=== PATIENT | male | born 1975 | race Caucasian/White ===

== ENCOUNTER → 2017-11-10 11:47 | Outpatient (CLI) | payer OTHER, SELFPAY ==
[2017-11-10 14:15] LABS: ALB/GLOB Ratio 1.2 RATIO (0.9-2.4); AST(SGOT) 32 U/L (15-37); Alanine Aminotransfer ALT/SGPT 56 U/L (16-61); Albumin, Serum 4.6 g/dL (3.2-5.0); Alkaline Phosphatase 33 U/L (45-117); Anion Gap 12 (5-15); BUN 8 mg/dL (7-18); Calcium,Total 9.3 mg/dL (8.5-10.1); Chloride 101 mmol/L (98-107); Cholesterol 261 mg/dL (200); Creatinine, Serum 0.73 mg/dL (0.70-1.30); EST Glomerular Filtration Rate 126 mL/min (>60); Est Glom Filt Rate - Afr Amer 153 mL/min (>60); Globulin 3.7 g/dL (2.2-4.2); Glucose 103 mg/dL (74-106); High Density Lipoprotein 52 mg/dL; Magnesium 1.8 mg/dL (1.6-2.6); Potassium 3.8 mmol/L (3.5-5.1); Protein, Total 8.3 g/dL (6.4-8.2); Sodium Level 140 mmol/L (136-145); Thyroid Stim Hormone (TSH) 2.14 uIU/mL (0.358-3.74); Triglycerides 130 mg/dL; Very Low Density Lipoprotein 26 mg/dL (5-40)
[2017-11-11 08:36] LABS: Vitamin D,25 Hydroxy 47.4 ng/mL (29.95-100.01)
== END ==
LOC: MFPLAB 11:50
PROVIDERS: Family Provider Family Medicine; PCP Family Medicine; Visit Provider Family Medicine
DX: I10 Essential (primary) hypertension (principal); R00.2 Palpitations
CPT/HCPCS: 36415; 80053; 80061; 82306; 83735; 84443

== ENCOUNTER 2021-02-18 02:17 | Observation (INO) | payer OTHER, SELFPAY ==
[2021-02-18] VITALS (14 sets, daily range): BP systolic 129–159; BP diastolic 67–104; PULSE 90–108; RESP 16–18; TEMP 36.6–37.1; O2SAT 93–99; BMI 31.5; BMI 30.6; BMI 30.7
--- NOTE | 2021-02-18 02:46 | CT_ITS ---
We are attempting to reach an attending provider to discuss findings. An addendum with communication details will be sent when the communication is complete. STUDY: CT ABDOMEN AND PELVIS WITH CONTRAST REASON FOR EXAM: Male, 45 years old. RLQ pain RADIATION DOSAGE (If Supplied By Facility): CTDIvol = ( 18.03 ) mGy, DLP = ( 1266.40 ) mGycm TECHNIQUE: Transaxial images were obtained from the dome of the diaphragm to the symphysis pubis without oral contrast. IV 100mL Isovue-300 was administered. Sagittal and coronal images were reconstructed. Individualized dose optimization techniques were used for this CT. COMPARISON: None. FINDINGS: The visualized lung bases are unremarkable. The visualized portions of the heart are within normal limits. There is fenestration of the liver. Several cysts are seen in the very largest measures 2 cm. Normal gallbladder and extrahepatic biliary system. Normal spleen. Normal pancreas. Normal bilateral adrenal glands. Normal right kidney. Normal left kidney. Normal visualized stomach. Normal small intestine. There are multiple colonic diverticula consistent with diverticulosis. There is a tubular, thick-walled appendix (>7mm), consistent with acute appendicitis. Normal abdominal aorta. Normal inferior vena cava. Normal retroperitoneum. Normal urinary bladder. Normal abdominal wall. Normal osseous structures. CT/Abdomen/Pelvis W IV Cont ONLY IMPRESSION: Acute appendicitis. Electronically Signed: Jose L Baires MD at 4:11 EST Tel , Service support ,
[2021-02-18] MEDS: 0.9% Normal Saline 1,000 ML 1000 ML IV (02:52)
[2021-02-18] MEDS: Ondansetron 4 MG/2 ML Vial IV (02:53)
[2021-02-18] MEDS: Morphine 4 MG/ML Syringe IV ×4 (02:53→11:03)
[2021-02-18 02:55] LABS: Bacteria 0 SEEN /hpf (None Seen); Mucous, Urine 0 SEEN /hpf (<or=2+); Red Blood Cells-Urine 0 SEEN /hpf (0-5); Squamous Epithelial Cells - UA 0 SEEN /hpf (0-5); White Blood Cells 0 SEEN /hpf (0-5)
[2021-02-18 02:56] LABS: Color, Urine Yellow (Yellow); Glucose, Dipstick Normal (Normal); Ketone-Dipstick 5 mg/dl (Negative); Leukocyte Esterase-Dipstick Negative /ul (Negative); Nitrite-Dipstick Negative (Negative); Occult Blood-Urine Negative /ul (Negative); Protein-Dipstick Negative (Negative); Urine Bilirubin Dipstick Negative (Negative); Urine Clarity Clear (Clear); Urine Urobilinogen Normal (Normal); Urine pH 6.5 (5.0 - 8.0)
[2021-02-18 02:58] LABS: Absolute Lymphocyte Count 1.89 X10^3/uL (0.83-4.51); Basophil# 0.05 X10^3/uL; Basophil% 0.4 % (0-1); Eosinophil# 0.04 X10^3/uL; Eosinophils% 0.3 % (0-5); Hematocrit 41.7 % (40-54); Hemoglobin 14.4 g/dL (13.0-16.5); Lymphocyte # 1.89 X10^3/ul (0.83-4.51); Lymphocyte % 14.4 % (19-41); Mean Corp Hgb Conc 34.5 g/dL (32-36); Mean Corpuscular Hgb 30.5 pg (27.0-32.0); Mean Corpuscular Volume 88.3 fL (80-94); Monocyte# 1.13 X10^3/uL; Monocyte% 8.6 % (0-10); NRBC Flagged by Analyzer 0 % (0-5); Neutrophil # 9.99 X10^3/uL (2.7-7.7); Neutrophil % 75.9 % (47-70); Platelet Count 170 K/mm3 (150-450); RBC Distribution Width CV 12.9 % (11.6-14.6); RBC Distribution Width SD 42.1 fl (35.1-43.9); Red Blood Count 4.72 M/mm3 (4.6-6.2); White Blood Count 13.2 K/mm3 (4.4-11.0)
[2021-02-18 03:12] LABS: ALB/GLOB Ratio 1.1 RATIO (0.9-2.4); AST(SGOT) 31 U/L (15-37); Alanine Aminotransfer ALT/SGPT 60 U/L (16-61); Albumin, Serum 4.1 g/dL (3.2-5.0); Alkaline Phosphatase 34 U/L (45-117); Anion Gap 9 (5-15); BUN 8 mg/dL (7-18); BUN/Creat Ratio 11.6 RATIO (10-20); Calcium,Total 8.9 mg/dL (8.5-10.1); Chloride 102 mmol/L (98-107); Creatinine, Serum 0.69 mg/dL (0.70-1.30); EST Glomerular Filtration Rate 133 mL/min (>60); Est Glom Filt Rate - Afr Amer 161 mL/min (>60); Estimated Creatinine Clearance 147.02 ml/min; Globulin 3.7 g/dL (2.2-4.2); Glucose 116 mg/dL (74-106); Lipase 78 U/L (73-393); Potassium 3.5 mmol/L (3.5-5.1); Protein, Total 7.8 g/dL (6.4-8.2); Sodium Level 135 mmol/L (136-145)
--- NOTE | 2021-02-18 03:26 | EDS_ITS ---
HPI History of Present Illness Chief Complaint: Abd Pain Informant: patient Narrative Narrative: Patient is a 45-year-old male that denies any significant past medical history presenting with right flank pain. Patient states it started suddenly around 9:30 PM. He notes today he just has not been feeling well and had decreased appetite. He did not eat dinner which is unusual for him. He had some mild associated nausea. He tried taking Pepto-Bismol with no relief of his symptoms. He denies any associated urinary symptoms, fever or chills. Denies any associated chest pain or difficulty breathing. Denies any history of kidney stones. He does note he was doing yard work for about 5 hours a day so is not sure if that is causing his pain. No other complaints or concerns at this time. No prior abdominal surgeries. Prior similar symptoms: No PFSH PFSH Medical History ADHD HTN (hypertension) Home Medications dextroamphetamine-amphetamine 10 mg PO BID 02/18/21 [History Last Taken Unknown] quinapril 20 mg PO DAILY 02/18/21 [History Last Taken Unknown] Allergy/AdvReac Type Severity Reaction Status Date / Time azithromycin Allergy NEEDS Verified 02/18/21 02:23 [From Zithromax Z-Eben] FOLLOW-UP erythromycin base Allergy NEEDS Verified 02/18/21 02:23 FOLLOW-UP Social History Smoking Status: Never smoker ROS ROS ED Constitutional Constitutional ED: Denies chills or fever(s) Eyes Eyes: Denies change in vision ENT ENT ED: Denies rhinorrhea or sore throat Cardiovascular Cardiovascular: Denies chest pain Respiratory/Chest Respiratory/Chest: Denies dyspnea Gastrointestinal Gastrointestinal: Reports abdominal pain and nausea; Denies constipation, diarrhea or vomiting Genitourinary Genitourinary ED: Denies dysuria or hematuria Musculoskeletal Musculoskeletal: Denies arthralgias or myalgias Integumentary Denies rash Neurologic Neurologic: Denies headache(s) or weakness EXAM Physical Exam Const Vital Signs: 02/18/21 02:18 Temperature 98.6 F Temperature Source Temporal Pulse Rate 108 H Respiratory Rate 18 Blood Pressure 159/104 H Blood Pressure Mean 122 Pulse Ox 99 Positive well nourished and well developed General Appearance ED: well developed HEENT Reports moist mucous membranes Eyes PERRL and EOMs intact bilaterally Neck supple Chest Wall inspection of chest normal Resp normal respiratory effort and clear to auscultation bilaterally Cardio regular rate, regular rhythm and no murmurs GI non-distended Palpation: soft and tender RLQ and McBurney's point; Negative for rebound tenderness present Back/Spine no CVA tenderness Extremity normal to inspection General Extremety ED: Negative for edema or tenderness General Extremity: Negative for edema Neuro oriented x3 Sensorium / Orientation: alert Motor Exam: Negative for general weakness Psych mental status grossly normal Skin no rashes or lesions noted MDM MDM MDM Narrative Medical decision making narrative: Patient evaluated for sudden onset of right- sided abdominal pain. Patient appears nontoxic but uncomfortable on exam. He is mildly hypertensive and tachycardic. He is given Zofran and morphine as well as IV fluids in the ER. He does have some improvement of his symptoms. Patient has a leukocytosis of 13.2. He does have significant tenderness palpation of the right lower quadrant concerning for acute appendicitis. CT of the abdomen and pelvis confirms acute appendicitis no signs of abscess or perforation. He started IV Zosyn. He is redosed with morphine for pain control. He is admitted to surgical service for definitive management. Lab Data Attestation: I reviewed the patient's lab results. Labs: Laboratory Results - last 24 hr 02/18/21 02/18/21 02/18/21 02:30 02:30 02:30 WBC 13.2 H RBC 4.72 Hgb 14.4 Hct 41.7 MCV 88.3 MCH 30.5 MCHC 34.5 RDW Std Deviation 42.1 RDW Coeff of Herlinda 12.9 Plt Count 170 MPV 10.0 Immature Gran % (Auto) 0.400 Neut % (Auto) 75.9 H Lymph % (Auto) 14.4 L [place] % (Auto) 8.6 Eos % (Auto) 0.3 Baso % (Auto) 0.4 Absolute Neuts (auto) 10.0 H Absolute Lymphs (auto) 1.89 Nucleated RBC % 0 Sodium 135 L Potassium 3.5 Chloride 102 Carbon Dioxide 24.0 Anion Gap 9 BUN 8 Creatinine 0.69 L Estim Creat Clear Calc 147.02 Est GFR (MDRD) Af Amer 161 Est GFR (MDRD) Non-Af 133 BUN/Creatinine Ratio 11.6 Glucose 116 H Calcium 8.9 Total Bilirubin 0.50 AST 31 ALT 60 Alkaline Phosphatase 34 L Total Protein 7.8 Albumin 4.1 Globulin 3.7 Albumin/Globulin Ratio 1.1 Lipase 78 Urine Color Yellow Urine Clarity Clear Urine pH 6.5 Ur Specific [place] 1.010 Urine Protein Negative Urine Glucose (UA) Normal Urine Ketones 5 H Urine Occult Blood Negative Urine Nitrite Negative Urine Bilirubin Negative Urine Urobilinogen Normal Ur Leukocyte Esterase Negative Urine RBC 0 SEEN Urine WBC 0 SEEN Ur Squamous Epith Cells 0 SEEN Urine Bacteria 0 SEEN Urine Mucus 0 SEEN Radiography Diagnostic Testing: Clinical Impression(s) from Imaging Studies Abdomen/Pelvis CT 02/18/21 02:46 IMPRESSION: Acute appendicitis. Electronically Signed: Jose L Baires MD at 4:11 EST Tel , Service support , Discharge Plan Triage Chief Complaint: Abd Pain ED Provider: Destiny Hu Dx/Rx/DC Orders Clinical Impression: Acute appendicitis, Leukocytosis Prescriptions: No Action dextroamphetamine-amphetamine 10 mg tablet 10 mg PO BID RF: 0 quinapril 20 mg tablet 20 mg PO DAILY RF: 0 Primary Care Provider: Greg Cleaning Referrals: Greg Cleaning MD [Primary Care Provider] - Disposition Disposition: [facility]
[2021-02-18] MEDS: Ketorolac 15 MG/ML Vial IV (04:37)
--- NOTE | 2021-02-18 05:14 | NURSING ---
PANDEMIC DOCUMENTATION DATE:02/18/21 TIME: 2750
[2021-02-18] MEDS: 0.9% Normal Saline 1,000 ML 120 ML IV (05:32)
--- NOTE | 2021-02-18 07:35 | HP.PCM.SX_ITS ---
HPI - General General Date of Admission: 02/18/21 HPI Narrative BREANN NICKERSON, is a 45 M who presents with sudden onset of right lower quadrant abdominal pain at 9:30 last night. Had been feeling unwell through the day, also with anorexia which is unusual for him. Presented to [facility] ED. Was afebrile, found to have elevated WBC of 13.2K with left shift of differential CT scan findings of acute appendicitis without perforation without abscess. patient admitted to hospital early this morning awaiting surgery in OR. [facility] Medical History ADHD Alcohol consumption of one to four drinks per day HTN (hypertension) Migraines Home Medications dextroamphetamine-amphetamine 10 mg PO BID 02/18/21 [History Last Taken 02/17/21] hydrocodone-acetaminophen 1 tab PO Q8H 5 Days #15 tab 02/18/21 [Rx Last Taken Unknown] quinapril 20 mg PO DAILY 02/18/21 [History Last Taken 02/17/21] Allergy/AdvReac Type Severity Reaction Status Date / Time azithromycin Allergy Vomiting Verified 02/18/21 05:28 [From Zithromax Z-Eben] erythromycin base Allergy Upset Verified 02/18/21 05:28 Stomach Social History Smoking Status: Never smoker ROS Constitutional Constitutional: Reports anorexia; Denies fever(s) Cardiovascular Cardiovascular: Denies chest pain Respiratory/Chest Respiratory/Chest: Denies dyspnea or productive cough Genitourinary Genitourinary: Reports systems reviewed and no addt'l complaints, except as documented Musculoskeletal Musculoskeletal: Denies joint swelling Integumentary Integumentary: Denies jaundice Neurologic Neurologic: Denies loss of vision Hematologic/Lymphatic Hematologic/Lymphatic: Denies easy bleeding Vital Signs Vital Signs Vital Signs: 02/18/21 02:18 02/18/21 04:19 02/18/21 04:35 Temperature 98.6 F 98.7 F Temperature Source Temporal Temporal Pulse Rate 108 H 96 Respiratory Rate 18 16 16 Respiratory Effort Respiratory Depth Respiratory Pattern Blood Pressure 159/104 H 146/87 H Blood Pressure Mean 122 106 Blood Pressure Source Monitor Pulse Ox 99 96 Oxygen Delivery Method Room Air 02/18/21 04:39 02/18/21 05:09 02/18/21 05:43 Temperature 98.7 F 98.3 F Temperature Source Temporal Temporal Pulse Rate 96 94 Respiratory Rate 16 16 Respiratory Effort Normal Respiratory Depth Normal Respiratory Pattern Normal Blood Pressure 146/87 H 156/84 H Blood Pressure Mean 106 108 Blood Pressure Source Pulse Ox 96 98 Oxygen Delivery Method Room Air Room Air Room Air Weight Weight: 99.5 kg Body Mass Index (BMI) 30.6 Physical Exam Const no apparent distress General Appearance: Negative for ill appearing Resp normal respiratory effort Cardio regular rate GI GI Narrative: abdomen is soft with RLQ abdominal tenderness, no peritoneal signs Extremity Negative for no clubbing, cyanosis or edema Results Lab / Micro Data Result Diagrams: 02/18/21 02:30 02/18/21 02:30 Labs: Laboratory Results - last 24 hr 02/18/21 02:30: WBC 13.2 H, RBC 4.72, Hgb 14.4, Hct 41.7, MCV 88.3, MCH 30.5, MCHC 34.5, RDW Std Deviation 42.1, RDW Coeff of Herlinda 12.9, Plt Count 170, MPV 10.0, Immature Gran % (Auto) 0.400, Neut % (Auto) 75.9 H, Lymph % (Auto) 14.4 L, [place] % (Auto) 8.6, Eos % (Auto) 0.3, Baso % (Auto) 0.4, Absolute Neuts (auto) 10.0 H, Absolute Lymphs (auto) 1.89, Nucleated RBC % 0 02/18/21 02:30: Sodium 135 L, Potassium 3.5, Chloride 102, Carbon Dioxide 24.0, Anion Gap 9, BUN 8, Creatinine 0.69 L, Estim Creat Clear Calc 147.02, Est GFR (MDRD) Af Amer 161, Est GFR (MDRD) Non-Af 133, BUN/Creatinine Ratio 11.6, Glucose 116 H, Calcium 8.9, Total Bilirubin 0.50, AST 31, ALT 60, Alkaline Phosphatase 34 L, Total Protein 7.8, Albumin 4.1, Globulin 3.7, Albumin/Globulin Ratio 1.1, Lipase 78 02/18/21 02:30: Urine Color Yellow, Urine Clarity Clear, Urine pH 6.5, Ur Specific [place] 1.010, Urine Protein Negative, Urine Glucose (UA) Normal, Urine Ketones 5 H, Urine Occult Blood Negative, Urine Nitrite Negative, Urine Bilirubin Negative, Urine Urobilinogen Normal, Ur Leukocyte Esterase Negative, Urine RBC 0 SEEN, Urine WBC 0 SEEN, Ur Squamous Epith Cells 0 SEEN, Urine Bacteria 0 SEEN, Urine Mucus 0 SEEN Micro: Microbiology 02/18/21 04:30 Nasal Secretion SARS-CoV-2 Antigen (Rapid) - Final Radiology Impression Abdomen/Pelvis CT 02/18/21 02:46 IMPRESSION: Acute appendicitis. Electronically Signed: Jose L Baires MD at 4:11 EST Tel , Service support , ADDENDUM: 02/18/21 0421 IMPRESSION: Acute appendicitis. N.B. : The above Results were Read Back by Jose L Baires MD to Destiny Hu DO, and understanding confirmed on 02/18/2021 04:14:13 (ET). Electronically Signed: Jose L Baires MD at 4:11 EST Tel , Service support , Assessment & Plan Assessment/Plan (1) Acute appendicitis: QUALIFIERS: Acute appendicitis type: unspecified acute appendicitis type Qualified Code(s): K35.80 - Unspecified acute appendicitis PLAN: I have discussed with patient and his who is present with him. Will plan on laparoscopic appendectomy. I have described the surgery to them. I have counseled the patient as to the risks of the procedure, including but not limited to: infection, bleeding, injury to any blood vessels/nerves, scar tissue, injury to any intrabdominal organs, injury to kidney/ureters, injury to bowel/bladder, intraabdominal abscess/bleeding, hernias at incisional sites, wound infections, possible open procedure, complications of anesthesia, postoperative pneumonia/cardiac problems/blood clots etc. the patient understands. He wishes to proceed I have answered all questions to the patient?s satisfaction and the patient has no further questions. Awaiting OR time - around 3:00 this afternoon, patient and his informed.
--- NOTE | 2021-02-18 13:52 | NURSING ---
patient off floor to surgery.
--- NOTE | 2021-02-18 14:25 | EKG12_ITS ---
Test Reason : PRE OP Blood Pressure : / mmHG Vent. Rate : 090 BPM Atrial Rate : 090 BPM P-R Int : 182 ms QRS Dur : 096 ms QT Int : 346 ms P-R-T Axes : 053 028 016 degrees QTc Int : 423 ms Normal sinus rhythm Normal ECG Confirmed by ERROL KHAN, JOSUÉ ([id number]), editor newspaper IVAN GARDNER ([id number]) on 02/21/2021 9:09:36 AM Referred By: DENNIS Confirmed By:JOSUÉ NORTON MD
--- NOTE | 2021-02-18 15:00 | APP_PTH ---
PATIENT: BREANN NICKERSON LOC: MS2 U#:[id number] AGE/SX: 45/M ROOM: [facility] RE02/18/[address]: Dr. Amparo Delatorre MD : 1975 BED: 1 DIS: 02/18/2021 SPEC #: [id number] RECD: 02/19/21 12:10 STATUS: MAURICE REQ #: [id number] DEMETRICE: 02/18/21 15:[address]: Amparo Delatorre DEPT: SURGICAL PATHOLOGY RECD BY: Justina Jeter ENTERED: 02/19/21 13:29 SP TYPE: APPENDIX OTHR DR: Dr. Greg Cleaning MD Tissues: Appendix, NOS Procedures: Surgery Specimen Level III HEADER OPERATION: Laparoscopic appendectomy PRE-OP DIAGNOSIS: Acute appendicitis TISSUE SUBMITTED: Appendix MICROSCOPIC DIAGNOSIS Appendix, appendectomy: Acute appendicitis and periappendicitis. SJ:julissa 02/20/2021 MICROSCOPIC DESCRIPTION Slides are reviewed. GROSS DESCRIPTION Received in fixative is one container labeled with the patient's name and designated appendix. The specimen consists of a C-shaped appendix measuring 8 cm in length and 1 cm in diameter. The serosa is covered with mandel, purulent exudate. No obvious perforation is identified. The lumen shows a small amount of hemorrhagic material. No fecalith is identified. Pipe Coverer sections are submitted in one cassette. / SJ:rg 02/19/21 TC:2 CPT: 94912
[2021-02-18] MEDS: Lidocaine 1% /Epi 1:100 (20ml) 20 ML Vial (15:34)
--- NOTE | 2021-02-18 16:58 | PCM.OPRPT ---
Report of Operation Date of Procedure: 02/18/21 Pre-Operative Diagnosis: acute appendicitis Post-Operative Diagnosis: same as above, not perforated Surgery/Procedure Performed:: laparoscopic appendectomy Surgeon: Amparo Delatorre Type of Anesthesia: General Anesthesiologist: Reese Cormier Specimen's removed: appendix Estimated Blood Loss (mL): < 20 ml Fluids Replaced: 1000 ml RL Description of Procedure: After informed consent was obtained, the patient was brought into the Operating Room. Appropriate time out protocol was followed. The patient was placed in the supine position on the operating table. The patient was then placed under general anesthesia by the anesthesia provider. The patient?s abdomen was then prepped with a sterile surgical skin preparation and sterile surgical drapes were placed. The infraumbilical skin fold was grasped with penetrating towel clamps and the skin and subcutaneous tissues were infiltrated with local anesthetic with epinephrine. A incision was then made with a 15 blade scalpel. A Veress needle was then inserted into the intraabdominal cavity and checked to be in the proper position with a normal saline drop test. A CO2 pneumoperitoneum was then created. Once this was achieved, the Veress needle was removed and a 5 mm trocar was placed in its stead. A 5 mm laparoscope was then inserted into the trocar. Careful examination of the intraabdominal contents was then done. There was no evidence of injury to any internal organs from placement of the Veress needle or the trocar. Under direct visualization, a 12mm suprapubic trocar and a 5mm left lower quadrant trocar was then placed into the intraabdominal cavity. The skin and subcutaneous tissues at these sites were first infiltrated with local anesthetic with epinephrine. Attention was then directed to the right lower quadrant. The appendix was visualized. The appendix appeared enlarged/edematous/injected with surrounding inflammation. The mesentery of the appendix was taken down by cauterizing the tissue from the free edge to the base of the appendix using the Harmonic scalpel. Once the base of the appendix was freed of surrounding tissues, then the linear gastrointestinal stapling device was brought into the abdominal cavity via the 12mm port and placed across the base of the appendix. The stapling device was fired, thus stapling across the base of the appendix and transecting it simultaneously. There was no evidence of perforation of the appendix. The pelvic cavity was vigorously irrigated with normal saline and all irrigant was aspirated out. The appendix was placed in an Endobag and this was brought out through the suprapubic trocar. The appendix was forwarded to Pathology for analysis. The appendiceal stump was carefully examined. There was no evidence of any active bleeding or fecal leakage. The surrounding tissues were also examined and there was no evidence of any active bleeding or fecal/bile leakage. The intraabdominal cavity was examined and there was no evidence of any further inflammation or tissue abnormality. The CO2 pneumoperitoneum was released and all trocars were removed intact. The suprapubic fascia was reapproximated with a figure-of-8 vicryl suture. All skin incisions were reapproximated with monocryl suture. Cavilon and steristrips were applied to reinforce skin closure and proper sterile dressings were placed. Sponge, needle, and instrument count were verified and correct at the time of skin closure. The patient was then extubated and brought to the Recovery Room in stable condition. Complications none noted Admit VTE Documentation VTE Present on Admission: Yes VTE Mechan Device Prophylaxis: SCD's
--- NOTE | 2021-02-18 17:08 | PCM.DC ---
Discharge Instructions Follow Up Care Test Results: Test results from this visit will be discussed in further detail at your follow-up appointment, if applicable. Discharge Plan Admission Admit Date/Time: 02/18/21 04:55 Attending Provider: Amparo Delatorre Primary Care Provider: Greg Cleaning Instructions Additional Instructions / Restrictions: Recommended pain control regimen - May take 600 mg ibuprofen (Motrin) and then in 3-4 hours, may take 650 mg acetaminophen (Tylenol), then in 3-4 hours may take 600 mg ibuprofen, then in 3-4 hours may take 650 mg acetaminophen and so on for 2-3 days May take narcotic pain medication for pain that is not controlled by above and at night for comfort through the night Leave dressings in place May shower, do not scrub in the areas of the dressings as they may unravel. If they become overly soiled you may remove them but leave incision site open to air. Leave the steristrips intact - they take the place of sutures/jose and they should be left alone to fall off on their own. Do not soak - no tub baths/swimming No lifting/pushing/pulling greater than 20 pounds for two weeks. Ambulation is encouraged, may climb stairs. Regular diet as tolerated, drink plenty of fluids. Avoid carbonated beverages for a few days as this will cause abdominal bloating and thus discomfort after our surgery. Please call my office for an appointment to see me in 1-2 weeks. Office number is If any questions, please call my office at and ask the drivematic machine operator for the general surgery nurses desk Discharge Orders/Prescriptions Prescriptions: New hydrocodone-acetaminophen 5-325 mg tablet 1 tab PO Q8H 5 Days Qty: 15 RF: 0 hydrocodone-acetaminophen 5-325 mg tablet 1 tab PO Q8H 5 Days Qty: 15 RF: 0 hydrocodone-acetaminophen 5-325 mg tablet 1 tab PO Q8H 5 Days Qty: 15 RF: 0 No Action dextroamphetamine-amphetamine 10 mg tablet 10 mg PO BID RF: 0 quinapril 20 mg tablet 20 mg PO DAILY RF: 0 Referrals / Follow Up: Greg Cleaning MD [Primary Care Provider] - Disposition Discharge Orders: Discharge Patient (Routine); Ordered 02/18/21 Ordered By: Dr. Amparo Delatorre
== END 2021-02-18 20:30 | disposition home or self-care (01) ==
LOC: ED 04:20 → MS2 07:22
PROVIDERS: Admitting Provider Surgery; Emergency Provider Emergency Medicine; PCP Family Medicine; Visit Provider Surgery
PROC: 0DTJ4ZZ Resection of Appendix, Percutaneous Endoscopic Approach (ICD-10-PCS; CPT 44970; principal; 2021-02-18 14:40)
DX: K35.80 Unspecified acute appendicitis (principal); I10 Essential (primary) hypertension; Z79.899 Other long term (current) drug therapy
CPT/HCPCS: 00840; 44970; 74177; 80053; 81001; 83690; 85025; 87426; 88304; 93005; 96361; 96365; 96366; 96375; 96376; 99218; 99284; J7030; Q9967; A4216; G0378; J2405

== ENCOUNTER 2021-03-22 14:23 | Emergency (ER) | payer OTHER, SELFPAY ==
[2021-03-22 14:23] VITALS: BP 159/98; PULSE 109; RESP 18; TEMP 36.5; O2SAT 99; BMI 31.1
--- NOTE | 2021-03-22 14:26 | EKG12_ITS ---
Test Reason : PALPS Blood Pressure : / mmHG Vent. Rate : 111 BPM Atrial Rate : 111 BPM P-R Int : 164 ms QRS Dur : 090 ms QT Int : 322 ms P-R-T Axes : 047 039 021 degrees QTc Int : 437 ms Sinus tachycardia Nonspecific T wave abnormality Abnormal ECG Confirmed by CECI KHAN, JESUS ([id number]), make up editor IVAN GARDNER ([id number]) on 03/25/2021 10:15:45 AM Referred By: FRANKY/SHON Confirmed By:JESUS ORNELAS MD
--- NOTE | 2021-03-22 14:27 | ED.RN ---
called for ekg at 1425.
--- NOTE | 2021-03-22 14:30 | RAD_ITS ---
STUDY: X-RAY CHEST REASON FOR EXAM: Male, 45 years old. Chest pain TECHNIQUE: Single AP portable view of the chest. COMPARISON: None. FINDINGS: The lungs are clear and expanded. There is no demonstrated pleural abnormality. Normal size heart. Calcified bilateral hilar lymph nodes. Normal visualized pulmonary arteries. Normal visualized aortic arch and descending thoracic aorta. There are degenerative changes of the visualized thoracic spine. Normal visualized ribs, clavicles, and shoulders. There is no demonstrated abnormality of the visualized soft tissue structures of the upper abdomen. RAD/Chest 1 View (Portable) IMPRESSION: Normal x-ray examination of the chest. Electronically Signed: Dillan Schmid MD at 14:54 EST , Service support ,
[2021-03-22 14:41] VITALS: BP 150/92; PULSE 106
[2021-03-22 14:46] LABS: Absolute Lymphocyte Count 1.04 X10^3/uL (0.83-4.51); Absolute Neutrophil Count 3.5 X10^3/uL (2.0-7.7); Basophil# 0.05 X10^3/uL; Basophil% 0.7 % (0-1); Eosinophil# 1.61 X10^3/uL; Eosinophils% 23.1 % (0-5); Hematocrit 43.4 % (40-54); Hemoglobin 14.6 g/dL (13.0-16.5); Lymphocyte # 1.04 X10^3/ul (0.83-4.51); Lymphocyte % 14.9 % (19-41); Mean Corp Hgb Conc 33.6 g/dL (32-36); Mean Corpuscular Volume 89.3 fL (80-94); Mean Platelet Vol. 9.6 fl (6.2-12.0); Monocyte# 0.72 X10^3/uL; Monocyte% 10.3 % (0-10); NRBC Flagged by Analyzer 0 % (0-5); Neutrophil # 3.52 X10^3/uL (2.7-7.7); Neutrophil % 50.7 % (47-70); POSITIVE MORPHOLOGY YES; Platelet Count 172 K/mm3 (150-450); RBC Distribution Width CV 13.2 % (11.6-14.6); RBC Distribution Width SD 43.3 fl (35.1-43.9); Red Blood Count 4.86 M/mm3 (4.6-6.2)
[2021-03-22 14:55] LABS: Differential Indicated SCAN CRITERIA MET
[2021-03-22 15:03] LABS: Anion Gap 7 (5-15); BUN 8 mg/dL (7-18); Calcium,Total 9.2 mg/dL (8.5-10.1); Chloride 101 mmol/L (98-107); Creatinine, Serum 0.89 mg/dL (0.70-1.30); EST Glomerular Filtration Rate 99 mL/min (>60); Est Glom Filt Rate - Afr Amer 120 mL/min (>60); Estimated Creatinine Clearance 113.98 ml/min; Glucose 132 mg/dL (74-106); Potassium 3.8 mmol/L (3.5-5.1); Sodium Level 136 mmol/L (136-145); Troponin-I HS 34 pg/mL (3.0-78.0)
--- NOTE | 2021-03-22 15:32 | CT_ITS ---
STUDY: CTA CHEST REASON FOR EXAM: Male, 45 years old. Palpitations RADIATION DOSAGE (If Supplied By Facility): CTDIvol = ( 8.86 ) mGy, DLP = ( 528.87 ) mGycm TECHNIQUE: The examination was performed with the intravenous administration of IV 100mL Isovue-370. Post-processing of the angiographic images was performed, with multiplanar reformation and 3D reconstruction. Individualized dose optimization techniques were used for this CT. COMPARISON: Chest x-ray earlier today FINDINGS: Normal enhancement of the main pulmonary artery and right and left pulmonary arteries. Normal enhancement of the bilateral peripheral pulmonary arteries. There is no demonstrated pulmonary embolism. Normal thoracic aorta and visualized great vessels. There is no demonstrated aortic dissection. Normal heart and pericardium. Normal mediastinum. Normal hilar regions. Normal visualized trachea and bronchi. The lungs are well expanded. Normal pulmonary parenchyma. Normal pleura. Normal chest wall structures. Normal osseous structures. Normal visualized upper abdomen. CT/CTA Chest W/WO Contrast IMPRESSION: Normal CTA chest examination, without a demonstrated pulmonary embolism or arterial dissection. Electronically Signed: Kodi Carney MD at 16:58 EST Tel , Service support ,
[2021-03-22 15:35] VITALS: BP 154/90; PULSE 117; RESP 18; O2SAT 97
[2021-03-22 15:53] LABS: Differential Comment SCANNED
[2021-03-22 16:19] VITALS: BP 160/93; PULSE 108; RESP 18; O2SAT 100
--- NOTE | 2021-03-22 16:50 | EDS_ITS ---
HPI History of Present Illness Chief Complaint: Palpitations Informant: patient Onset/Context/Timing Onset: Yesterday Activity at onset: sudden Timing: Intermittent Quality: Positive for Tightness Location: Left Chest Worsened By: Nothing Relieved By: Nothing Associated Symptoms: Positive for Diaphoresis, Cough, Lightheadedness, Acid Reflux and Palpitations; Negative for Nausea, Vomiting, Dyspnea and Fever Narrative Narrative: Patient presents with palpitations and tachycardia that began yesterday. Patient states he had an episode where he felt like his heart was racing yesterday. Patient states it lasted approximately 1 hour. Patient states that today he feels like his heart is beating fast. Patient states he is having some tightness in his chest. Patient states it is over the left mid chest. Patient states nothing makes it better nothing makes it worse. Patient states he feels lightheaded with this. Patient denies any nausea or vomiting. Patient does admit to some slight diaphoresis. Patient also admits to mild cough. Patient denies any fevers or shortness of breath. PFSH PFSH Medical History (Updated 03/22/21 @ 18:[address] Greg Hart DO) ADHD Alcohol consumption of one to four drinks per day HTN (hypertension) Migraines Home Medications dextroamphetamine-amphetamine 10 mg PO BID 02/18/21 [History Last Taken 02/17/21] hydrocodone-acetaminophen 1 tab PO Q8H 5 Days #15 tab 02/18/21 [Rx Last Taken Unknown] hydrocodone-acetaminophen 1 tab PO Q8H 5 Days #15 tab 02/18/21 [Rx Last Taken Unknown] hydrocodone-acetaminophen 1 tab PO Q8H 5 Days #15 tab 02/18/21 [Rx Last Taken Unknown] quinapril 20 mg PO DAILY 02/18/21 [History Last Taken 02/17/21] Allergy/AdvReac Type Severity Reaction Status Date / Time azithromycin Allergy Vomiting Verified 03/22/21 14:23 [From Zithromax Z-Eben] erythromycin base Allergy Upset Verified 03/22/21 14:23 Stomach Surgical History (Updated 03/22/21 @ 16:[address] Greg Hart DO) Hx of appendectomy Hx of resection of rib Social History Smoking Status: Never smoker ROS ROS ED Constitutional Constitutional ED: Denies chills or fever(s) Eyes Eyes: Reports blurry vision; Denies diplopia ENT ENT ED: Denies rhinorrhea or sore throat Cardiovascular Cardiovascular: Reports chest pain and palpitations Respiratory/Chest Respiratory/Chest: Reports cough; Denies dyspnea Gastrointestinal Gastrointestinal: Reports nausea; Denies abdominal pain or vomiting Genitourinary Genitourinary ED: Denies dysuria or hematuria Musculoskeletal Musculoskeletal: Denies back pain or neck pain Integumentary Denies abscess or rash Neurologic Neurologic: Reports headache(s) and paresthesias; Denies weakness Allergic/Immunologic Allergic/Immunologic ED: Denies mouth swelling or urticaria EXAM Physical Exam Const Vital Signs: 03/22/21 14:23 03/22/21 14:39 03/22/21 14:41 Temperature 97.7 F L Temperature Source Temporal Pulse Rate 109 H 106 H Respiratory Rate 18 Respiratory Effort Respiratory Pattern Blood Pressure 159/98 H 150/92 H Blood Pressure Mean 118 111 Pulse Ox 99 Oxygen Delivery Method Room Air Room Air 03/22/21 14:42 03/22/21 15:35 03/22/21 16:19 Temperature Temperature Source Pulse Rate 117 H 108 H Respiratory Rate 18 18 Respiratory Effort Normal Respiratory Pattern Normal Blood Pressure 154/90 H 160/93 H Blood Pressure Mean 111 115 Pulse Ox 97 100 Oxygen Delivery Method Room Air Room Air 03/22/21 17:38 Temperature Temperature Source Pulse Rate 97 Respiratory Rate 13 Respiratory Effort Respiratory Pattern Blood Pressure 142/101 H Blood Pressure Mean 114 Pulse Ox 95 Oxygen Delivery Method Room Air Positive well nourished and well developed General Appearance ED: well developed HEENT Reports moist mucous membranes Neck supple and no JVD Resp normal respiratory effort Effort and Inspection: respiratory distress Cardio regular rhythm Rate: tachycardic GI normal to inspection, nondistended, normoactive bowel sounds, soft to palpation and non-tender Neuro oriented x3, CN's II-XII intact bilaterally and no sensory deficits noted Sensorium / Orientation: awake and alert Motor Exam: strength 5/5 throughout Psych mental status grossly normal Heart Score History: Slightly/Non-Suspicious ECG: Nonspecific Repolarization Age: </= 45 years Risk Factors: 1 or 2 Risk Factors Troponin: </= Normal Limit Score: 2 MDM MDM MDM Narrative Medical decision making narrative: EKG was obtained. On my interpretation, it showed a sinus tachycardia with a rate of 111. ID interval, QRS interval, and QTc intervals were all normal. Chamberlain was normal. There are nonspecific ST-T wave changes. CBC was within normal limits. Basic metabolic profile was normal. Initial high-sensitivity troponin was normal. Portable 1 view chest x- ray was obtained. On my interpretation, lung gonzalez are clear. There is normal cardiac silhouette. Bony thorax is normal. There is no acute process noted. Radiologist also interpreted the x-ray and agrees. 2-hour repeat high- sensitivity troponin was unchanged. Patient was given IV fluids. Patient is feeling better on reevaluation. Patient's heart rate is improving. Patient was advised of his findings. Patient was instructed to drink plenty of fluids. Patient was instructed to follow-up with his primary care physician in 5 to 7 days. Patient understood and was agreeable with the plan. All questions were answered. Lab Data Attestation: I reviewed the patient's lab results. Labs: Laboratory Results - last 24 hr 03/22/21 03/22/21 03/22/21 14:40 14:40 16:42 WBC 7.0 RBC 4.86 Hgb 14.6 Hct 43.4 MCV 89.3 MCH 30.0 MCHC 33.6 RDW Std Deviation 43.3 RDW Coeff of Herlinda 13.2 Plt Count 172 MPV 9.6 Immature Gran % (Auto) 0.300 Neut % (Auto) 50.7 Lymph % (Auto) 14.9 L Taney % (Auto) 10.3 H Eos % (Auto) 23.1 H Baso % (Auto) 0.7 Absolute Neuts (auto) 3.5 Absolute Lymphs (auto) 1.04 Nucleated RBC % 0 Differential Comment SCANNED Sodium 136 Potassium 3.8 Chloride 101 Carbon Dioxide 28.0 Anion Gap 7 BUN 8 Creatinine 0.89 Estim Creat Clear Calc 113.98 Est GFR (MDRD) Af Amer 120 Est GFR (MDRD) Non-Af 99 BUN/Creatinine Ratio 9.0 L Glucose 132 H Calcium 9.2 Troponin I High Sens 34 34 Radiography Chest X-Ray - ED: 1 View, Read by ED Physician, Read by Radiologist and Normal Diagnostic Testing: Clinical Impression(s) from Imaging Studies Chest X-Ray 03/22/21 14:30 IMPRESSION: Normal x-ray examination of the chest. Electronically Signed: Dillan Schmid MD at 14:54 EST , Service support , Chest CTA 03/22/21 15:32 IMPRESSION: Normal CTA chest examination, without a demonstrated pulmonary embolism or arterial dissection. Electronically Signed: Kodi Carney MD at 16:58 EST Tel , Service support , EKG Initial EKG: Interpretation: Sinus Tachycardia (111) and Non-Specific ST Changes Prior EKG tracings: available for review Prior: Unchanged (02/18/2021) Discharge Plan Triage Chief Complaint: Palpitations ED Provider: Greg Hart Dx/Rx/DC Orders Clinical Impression: Sinus tachycardia Instructions: ED Dehydration (Adult), ED Palpitations Prescriptions: No Action dextroamphetamine-amphetamine 10 mg tablet 10 mg PO BID RF: 0 quinapril 20 mg tablet 20 mg PO DAILY RF: 0 hydrocodone-acetaminophen 5-325 mg tablet 1 tab PO Q8H 5 Days Qty: 15 RF: 0 hydrocodone-acetaminophen 5-325 mg tablet 1 tab PO Q8H 5 Days Qty: 15 RF: 0 hydrocodone-acetaminophen 5-325 mg tablet 1 tab PO Q8H 5 Days Qty: 15 RF: 0 Primary Care Provider: Greg Cleaning Referrals: Greg Cleaning MD [Primary Care Provider] - 3-5 Days Disposition Disposition: Home, Self Care
[2021-03-22 17:27] LABS: Troponin-I HS 34 pg/mL (3.0-78.0)
[2021-03-22 17:38] VITALS: BP 142/101; PULSE 97; RESP 13; O2SAT 95
[2021-03-22] MEDS: 0.9% Normal Saline 1,000 ML 1000 ML IV (17:38)
[2021-03-22 18:18] VITALS: BP 150/86; PULSE 88; RESP 18
== END 2021-03-22 18:19 | disposition home or self-care (01) ==
PROVIDERS: Emergency Provider Emergency Medicine; PCP Family Medicine
DX: R00.0 Tachycardia, unspecified (principal); R07.89 Other chest pain; R61 Generalized hyperhidrosis; R05.9 Cough, unspecified; I10 Essential (primary) hypertension; F90.9 Attention-deficit hyperactivity disorder, unspecified type; G43.909 Migraine, unspecified, not intractable, without status migrainosus; Z79.899 Other long term (current) drug therapy
CPT/HCPCS: 71045; 71275; 80048; 84484; 85025; 93005; 96360; 99285; J7030; Q9967; A4216

== ENCOUNTER → 2021-03-28 12:51 | Outpatient (CLI) | payer OTHER, SELFPAY | PROVIDERS: PCP Family Medicine; Referring Provider Family Medicine; Visit Provider Family Medicine | DX: I47.9 Paroxysmal tachycardia, unspecified (principal) ==

== ENCOUNTER → 2021-08-16 | Outpatient (CLI) | payer OTHER, SELFPAY ==
--- NOTE | 2021-08-16 16:09 | RAD_ITS ---
STUDY: X-RAY - UNILATERAL RIBS ( LEFT ) REASON FOR EXAM: Male, 46 years old. Anterolateral left rib pain. TECHNIQUE: 4 view(s) of the ribs. COMPARISON: None. FINDINGS: Normal visualized ribs without a demonstrated fracture. The visualized lung is clear and expanded. RAD/Ribs Unil 2V No CXR IMPRESSION: Normal x-ray examination of the left ribs. Electronically Signed: Gianni Sanchez DO at 23:58 EDT ,
--- NOTE | 2021-08-16 16:09 | RAD_ITS ---
STUDY: X-RAY CHEST REASON FOR EXAM: Male, 46 years old. Pain. TECHNIQUE: PA and lateral views of the chest. COMPARISON: 03/22/2021. FINDINGS: The lungs are clear and expanded. There is no demonstrated pleural abnormality. Normal size heart. Normal mediastinum and jadyn. Normal visualized pulmonary arteries. Normal visualized aortic arch and descending thoracic aorta. Degenerative changes of the thoracic spine. Normal visualized ribs, clavicles, and shoulders. There is no demonstrated abnormality of the visualized soft tissue structures of the upper abdomen. RAD/Chest PA and Lateral IMPRESSION: No acute cardiopulmonary disease or major interval change. Electronically Signed: Gianni Sanchez DO at 23:56 EDT ,
== END | disposition home or self-care (01) ==
LOC: MTRAD 16:07
PROVIDERS: PCP Family Medicine; Referring Provider Family Medicine; Visit Provider Family Medicine
DX: R07.81 Pleurodynia (principal)
CPT/HCPCS: 71046; 71100

== ENCOUNTER → 2022-04-24 | Outpatient (CLI) | payer OTHER, SELFPAY ==
[2022-04-24 17:02] LABS: Microalbumin,Random Urine 99.6 mg/L (NO RANGE EST.); Microalbumin:Creatinine Ratio 60.4 mg/g CRE (<30 mg/g CRE)
[2022-04-24 17:09] LABS: ALB/GLOB Ratio 1.2 RATIO (0.9-2.4); AST(SGOT) 59 U/L (15-37); Alanine Aminotransfer ALT/SGPT 108 U/L (16-61); Albumin, Serum 4.3 g/dL (3.2-5.0); Alkaline Phosphatase 33 U/L (45-117); Anion Gap 10 (5-15); BUN 8 mg/dL (7-18); BUN/Creat Ratio 10.9 RATIO (10-20); Calcium,Total 9.3 mg/dL (8.5-10.1); Chloride 99 mmol/L (98-107); Creatinine, Serum 0.73 mg/dL (0.70-1.30); EST Glomerular Filtration Rate 123 mL/min (>60); Est Glom Filt Rate - Afr Amer 149 mL/min (>60); Globulin 3.7 g/dL (2.2-4.2); Glucose 119 mg/dL (74-106); Sodium Level 135 mmol/L (136-145); Thyroid Stim Hormone (TSH) 1.73 uIU/mL (0.358-3.74)
== END | disposition home or self-care (01) ==
LOC: MFPLAB 11:21
PROVIDERS: PCP Family Medicine; Visit Provider Family Medicine
DX: I10 Essential (primary) hypertension (principal); I47.9 Paroxysmal tachycardia, unspecified
CPT/HCPCS: 36415; 80053; 82043; 82570; 84443

== ENCOUNTER → 2023-08-05 | Outpatient (CLI) | payer OTHER, SELFPAY ==
[2023-08-05 15:38] LABS: Absolute Lymphocyte Count 1.57 X10^3/uL (0.83-4.51); Basophil# 0.06 X10^3/uL; Basophil% 1.1 % (0-1); Eosinophil# 0.02 X10^3/uL; Eosinophils% 0.4 % (0-5); Hematocrit 44.5 % (40-54); Hemoglobin 14.7 g/dL (13.0-16.5); Lymphocyte # 1.57 X10^3/ul (0.83-4.51); Lymphocyte % 29.5 % (19-41); Mean Corpuscular Hgb 30.2 pg (27.0-32.0); Mean Corpuscular Volume 91.4 fL (80-94); Monocyte# 0.66 X10^3/uL; Monocyte% 12.4 % (0-10); NRBC Flagged by Analyzer 0 % (0-5); Neutrophil # 2.98 X10^3/uL (2.7-7.7); Platelet Count 168 K/mm3 (150-450); RBC Distribution Width SD 43.8 fl (35.1-43.9); Red Blood Count 4.87 M/mm3 (4.6-6.2); White Blood Count 5.3 K/mm3 (4.4-11.0)
[2023-08-05 16:23] LABS: ALB/GLOB Ratio 1.2 RATIO (0.9-2.4); AST(SGOT) 28 U/L (15-37); Alanine Aminotransfer ALT/SGPT 54 U/L (16-61); Albumin, Serum 4.1 g/dL (3.2-5.0); Alkaline Phosphatase 34 U/L (45-117); Anion Gap 9 (5-15); BUN 7 mg/dL (7-18); BUN/Creat Ratio 8.8 RATIO (10-20); Chloride 102 mmol/L (98-107); EST Glomerular Filtration Rate 111 mL/min (>60); Est Glom Filt Rate - Afr Amer 135 mL/min (>60); Globulin 3.5 g/dL (2.2-4.2); Glucose 133 mg/dL (74-106); Potassium 3.8 mmol/L (3.5-5.1); Protein, Total 7.6 g/dL (6.4-8.2); Sodium Level 136 mmol/L (136-145)
[2023-08-05 16:29] LABS: Amphetamine Urine VISTA NEGATIVE (<1000 ng/mL); Barbiturate Urine VISTA NEGATIVE (< 200 ng/mL); Benzodiazepine Urine VISTA NEGATIVE (< 200 ng/mL); Cocaine Urine VISTA NEGATIVE (< 300 ng/mL); Ecstacy Urine VISTA NEGATIVE (< 500 ng/mL); Methadone Urine VISTA NEGATIVE (< 300 ng/mL); PCP Urine VISTA NEGATIVE (< 25 ng/mL); THC Urine VISTA NEGATIVE (< 50 ng/mL); Vista UDS pH Range 7
[2023-08-05 16:36] LABS: Microalbumin,Random Urine 5.7 mg/L (NO RANGE EST.); Microalbumin:Creatinine Ratio 24.5 mg/g CRE (<30 mg/g CRE)
== END | disposition home or self-care (01) ==
LOC: MTLAB 12:47
PROVIDERS: PCP Family Medicine; Referring Provider Family Medicine; Visit Provider Family Medicine
DX: I10 Essential (primary) hypertension (principal); F98.8 Other specified behavioral and emotional disorders with onset usually occurring in childhood and adolescence
CPT/HCPCS: 36415; 80053; 80307; 82043; 82570; 85025

== ENCOUNTER → 2024-06-17 | Outpatient (CLI) | payer OTHER, SELFPAY ==
--- NOTE | 2024-06-17 15:25 | US_ITS ---
PROCEDURE: THYROID REASON FOR EXAM: L lower pole 1cm fullness, ? nodule vs cyst TECHNIQUE: Grayscale and color Doppler imaging of the thyroid was performed. COMPARISON: None. FINDINGS: Right lobe measures 4.5 x 1.6 x 1.5cm. Essentially homogeneous background echotexture. No abnormal vascularity. No visualized solid or mostly solid nodules are identified. Left lobe measures 4.3 x 1.6 x 1.3 cm. Essentially homogeneous background echotexture. No abnormal vascularity. No visualized solid or mostly solid nodules are identified. Isthmus measures 3 mm in thickness. US/Thyroid IMPRESSION: 1. Assessment is TI-RADS 1; no solid or mostly solid nodules are identified. 2. Normal size homogeneous gland without abnormal vascularity. Recommendations per ACR Thyroid Imaging, Reporting and Data System (TI-RADS): Gisella morgan Paper of the ACR TI-RADS Committee, 2017 ([email or web address]) Reading Location: [facility]
== END | disposition home or self-care (01) ==
PROVIDERS: PCP Family Medicine; Referring Provider Family Medicine; Visit Provider Family Medicine
DX: E07.89 Other specified disorders of thyroid (principal)
CPT/HCPCS: 76536

== ENCOUNTER 2024-07-08 14:54 | Observation (INO) | payer OTHER, SELFPAY ==
--- NOTE | 2024-07-04 20:14 | PAT.ANE_ITS ---
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 When Was Last Pacemaker Check QUESTION #4 FULL TEXT: You/Your Family Experience fever (hyperthermia) with Anesthesia Last Oral Intake Last Oral intake: Last Oral Intake NPO since Meds taken in AM with sips of water? Meds patient instructed to take am of surgery PONV PONV - photographic spotter: PONV - photographic spotter Female No 07/04/24 14:10 HX of Motion Sickness No 07/04/24 14:10 HX of N/V After Surgery No 07/04/24 14:10 Non-Smoker Yes 07/04/24 14:10 Duration of Surgery greater No 07/04/24 14:10 than 60 minutes Number of Risk Factors 1 07/04/24 14:10 PONV Score Low Risk 07/04/24 14:10 Height & Weight Height & Weight: Anesthesia: Height & Weight Height 5 ft 11 in 03/01/24 09:27 Respiratory Assessment Respiratory Assessment - photographic spotter: Respiratory Tract Infection Hx - photographic spotter Hx Respiratory Tract Infection No 07/04/24 14:10 STOP Sleep Apnea STOP Sleep Apnea - photographic spotter: STOP Sleep Apnea - photographic spotter Hx Hypertension Yes: CONTROLLED WITH MEDS 07/04/24 14:10 Hx Sleep Apnea No 07/04/24 14:10 CPAP BIPAP Do you snore loudly (louder Yes 07/04/24 14:10 than talking or can be heard Do you often feel tired/ No 07/04/24 14:10 fatigued/ sleepy during daytime? Has anyone observed you stop No 07/04/24 14:10 breathing during sleep? STOP Results Positive 07/04/24 14:10 QUESTION #5 FULL TEXT : Do you snore loudly (louder than talking or can be heard through closed doors)? 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 Specify any problems Hx of Preganancy in last 3 N/A 07/04/24 14:10 Months Nurse Filling Out Transfusion JZOLLINGE 07/04/24 14:10 & Questions: Date: 07/04/24 07/04/24 14:10 Time: 14:13 07/04/24 14:10 Patient unable to answer at this time (ie. confused, unrespo /Reproduction History /Reproductive History - photographic spotter: /Reproductive Hx- photographic spotter Hx Now No 07/04/24 14:10 Gestational Age (in weeks): EDC: Hx Hx Para Hx Section SAB No 07/04/24 14:10 [facility] Medical History (Updated 07/04/24 @ 14:10 by Jo-Ann Ramirez) Wears glasses Non-smoker Alcohol consumption of one to four drinks per day Migraines Leukocytosis Acute appendicitis ADHD HTN (hypertension) Home Medications ?Medication ?Instructions ?Recorded ?Last Taken ?Type dextroamphetamine-amphetamine 10 10 mg PO BID 03/01/24 Unknown History mg tablet (Adderall) indapamide 1.25 mg tablet 1.25 mg PO QAM 03/01/24 Unkn own History metoprolol tartrate 50 mg tablet 50 mg PO QDAY 4 Unknown History omega-3 fatty acids-fish oil 360 1 cap PO QDAY 4 Unknown History mg-1,200 mg capsule (Fish Oil) ramipril 10 mg capsule 10 mg PO QDAY 03/01/24 Unkno wn History Allergy/AdvReac Type Severity Reaction Status Date / Time acetazolamide Allergy Hands and Verified 07/04/24 14:01 feet tingle azithromycin (From Zithromax Allergy Vomiting Verified 07/04/24 14:01 Z-Eben) erythromycin base Allergy Upset Verified 07/04/24 14:01 Stomach naproxen (From Aleve) Allergy Dizziness Verified 07/04/24 14:01 Surgical History (Updated 03/22/21 @ 16:[address] Greg Hart, DO) Hx of resection of rib Hx of appendectomy Social History (Updated 03/01/24 @ 08:57 by Val Garcia) household members: spouse current occupational status: employed Smoking Status: Never smoker alcohol intake: current substance use type: does not use Audit: Pertinent Findings Pertinent Findings EKG Perinent findings: March 22, 2021. Sinus tachycardia at 111 bpm. Nonspecific T wave abnormality. Recommendation Anesthesia Recommendation Anesthesia recommendation: OPTIMIZED for anesthesia (Check heart rate. May consider twelve-lead EKG on day of surgery.)
[2024-07-08] VITALS (21 sets, daily range): BP systolic 63–158; BP diastolic 26–102; PULSE 70–99; RESP 12–20; TEMP 35.8–37; O2SAT 92–99; BMI 32.3; BMI 32.5
--- NOTE | 2024-07-08 08:20 | PRE.ANES_ITS ---
ASA Classification* ASA Classification ASA Classification: 2 Assessment & Plan Anesthesia* Anesthesia Assessment Anesthesia Assessment: Discussed sedation and/or anesthesia options, risks, benefits, and alternatives with patient/parents/legal guardian/POA. Questions invited. The patient/parents/legal guardian/POA seems to understand and agrees to proceed with anesthesia plan. Reviewed the physical assessment, medical history, allergy history and patient home medications list prior to surgery/procedure/anesthetic and documented any changes. Performed airway and anesthesia risk assessments. Anesthesia Type Anesthesia Type: MAC Anesthesia Focused Assessment* Temperature: 97.8 F Pulse Rate: 70 Blood Pressure: 158/102 Respiratory Rate: 16 Pulse Ox: 98 Airway Assessment Mouth opens: >3 cm Mallampati Score: II Focused Labs Anesthesia Preop lab: CBC WBC 5.3 K/mm3 (4.4-11.0) 08/05/23 12:54 08/05/23 RBC 4.87 M/mm3 (4.6-6.2) 08/05/23 12:54 08/05/23 Hgb 14.7 g/dL (13.0-16.5) 08/05/23 12:54 08/05/23 Hct 44.5 % (40-54) 08/05/23 12:54 08/05/23 Plt Count 168 K/mm3 (150-450) 08/05/23 12:54 08/05/23 CHEMISTRY Potassium 3.8 mmol/L (3.5-5.1) 08/05/23 12:54 08/05/23 Sodium 136 mmol/L (136-145) 08/05/23 12:54 08/05/23 Magnesium 1.8 mg/dL (1.6-2.6) 11/10/17 11:52 11/10/17 BUN 7 mg/dL (7-18) 08/05/23 12:54 08/05/23 Creatinine 0.80 mg/dL (0.70-1.30) 08/05/23 12:54 08/05/23 Glucose 133 mg/dL (74-106) H 08/05/23 12:54 08/05/23 TSH 1.73 uIU/mL (0.358-3.74) 04/24/22 11:24 COAG Pre-Assessment Diagnosis/Proposed Procedure Planned Operative Procedure(s): Colonoscopy - Open Access Anesthesia History 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 When Was Last Pacemaker Check QUESTION #4 FULL TEXT: You/Your Family Experience fever (hyperthermia) with Anesthesia Last Oral Intake Last Oral intake: Last Oral Intake NPO since 04:45 07/08/24 08:08 Meds taken in AM with sips of No 07/08/24 08:08 water? 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 - accounting bookkeeper Female No 07/04/24 14:10 HX of Motion Sickness No 07/04/24 14:10 HX of N/V After Surgery No 07/04/24 14:10 Non-Smoker Yes 07/04/24 14:10 Duration of Surgery greater No 07/04/24 14:10 than 60 minutes Number of Risk Factors 1 07/04/24 14:10 PONV Score Low Risk 07/04/24 14:10 Height & Weight Height & Weight: Anesthesia: Height & Weight Height 5 ft 11 in 07/08/24 08:08 Weight: 105.4 kg 07/08/24 08:08 Body Mass Index (BMI) 32.3 07/08/24 08:08 Respiratory Assessment Respiratory Assessment - accounting bookkeeper: Respiratory Tract Infection Hx - accounting bookkeeper Hx Respiratory Tract Infection No 07/04/24 14:10 STOP Sleep Apnea STOP Sleep Apnea - accounting bookkeeper: STOP Sleep Apnea - accounting bookkeeper Hx Hypertension Yes: CONTROLLED WITH MEDS 07/04/24 14:10 Hx Sleep Apnea No 07/04/24 14:10 CPAP BIPAP Do you snore loudly (louder Yes 07/04/24 14:10 than talking or can be heard Do you often feel tired/ No 07/04/24 14:10 fatigued/ sleepy during daytime? Has anyone observed you stop No 07/04/24 14:10 breathing during sleep? STOP Results Positive 07/04/24 14:10 QUESTION #5 FULL TEXT : Do you snore loudly (louder than talking or can be heard through closed doors)? 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 Specify any problems Hx of Preganancy in last 3 N/A 07/04/24 14:10 Months Nurse Filling Out Transfusion JZOLLINGE 07/04/24 14:10 & Questions: Date: 07/04/24 07/04/24 14:10 Time: 14:13 07/04/24 14:10 Patient unable to answer at this time (ie. confused, unrespo /Reproduction History /Reproductive History - accounting bookkeeper: /Reproductive Hx- accounting bookkeeper Hx Now No 07/04/24 14:10 Gestational Age (in weeks): EDC: Hx Hx Para Hx Section SAB No 07/04/24 14:10 [facility] Medical History Wears glasses Non-smoker Alcohol consumption of one to four drinks per day Migraines Leukocytosis Acute appendicitis ADHD HTN (hypertension) Home Medications ?Medication ?Instructions ?Recorded ?Last Taken ?Type dextroamphetamine-amphetamine 10 10 mg PO BID 03/01/24 Unknown History mg tablet (Adderall) indapamide 1.25 mg tablet 1.25 mg PO QAM 03/01/24 Unkn own History metoprolol tartrate 50 mg tablet 50 mg PO QDAY 4 07/08/24 History omega-3 fatty acids-fish oil 360 1 cap PO QDAY 4 Unknown History mg-1,200 mg capsule (Fish Oil) ramipril 10 mg capsule 10 mg PO QDAY 03/01/24 Unkno wn History Allergy/AdvReac Type Severity Reaction Status Date / Time acetazolamide Allergy Hands and Verified 07/08/24 08:17 feet tingle azithromycin (From Zithromax Allergy Vomiting Verified 07/08/24 08:17 Z-Eben) erythromycin base Allergy Upset Verified 07/08/24 08:17 Stomach naproxen (From Aleve) Allergy Dizziness Verified 07/08/24 08:17 Surgical History Hx of resection of rib Hx of appendectomy Social History household members: spouse current occupational status: employed Smoking Status: Never smoker alcohol intake: current substance use type: does not use Review of Systems (Anesthesia) ROS Narrative System reviewed and no additional complaints, except as documented.
--- NOTE | 2024-07-08 08:44 | HP.PCM_ITS ---
HPI - General HPI Narrative BREANN NICKERSON, is a 49 M who presents for screening colonoscopy. Patient has never had a colonoscopy in the past. He denies abdominal pain or blood in the stool. No family history of colon cancer. COUNT INCLUDES THE [facility] Medical History Wears glasses Non-smoker Alcohol consumption of one to four drinks per day Migraines Leukocytosis Acute appendicitis ADHD HTN (hypertension) Home Medications ?Medication ?Instructions ?Recorded ?Last Taken ?Type dextroamphetamine-amphetamine 10 10 mg PO BID 03/01/24 Unknown History mg tablet (Adderall) indapamide 1.25 mg tablet 1.25 mg PO QAM 03/01/24 Unkn own History metoprolol tartrate 50 mg tablet 50 mg PO QDAY 4 07/08/24 History omega-3 fatty acids-fish oil 360 1 cap PO QDAY 4 Unknown History mg-1,200 mg capsule (Fish Oil) ramipril 10 mg capsule 10 mg PO QDAY 03/01/24 Unkno wn History Allergy/AdvReac Type Severity Reaction Status Date / Time acetazolamide Allergy Hands and Verified 07/08/24 08:17 feet tingle azithromycin (From Zithromax Allergy Vomiting Verified 07/08/24 08:17 Z-Eben) erythromycin base Allergy Upset Verified 07/08/24 08:17 Stomach naproxen (From Aleve) Allergy Dizziness Verified 07/08/24 08:17 Surgical History Hx of resection of rib Hx of appendectomy Social History household members: spouse current occupational status: employed Smoking Status: Never smoker alcohol intake: current substance use type: does not use Past Medical/Surgical History Planned Operation Planned Operative Procedure(s): Colonoscopy - Open Access Previous Hospitalizations/Surgeries Any Problems With Anesthesia: No You/Your Family Experience Fever (Hyperthermia) With Anes: No Cholinesterase deficiency: No Cardiovascular Hx Hypertension: Yes Respiratory Hx Sleep Apnea: No Hx Respiratory Tract Infection/Cold (presently): No Do You Snore Loudly (louder than talking or can be heard): Yes Do You Often Feel Tired/ Fatigued/ Sleepy Dring Daytime?: No Has Anyone Observed You Stop Breathing During Sleep?: No Result (for STOP score): Positive Smoking Status: Never smoker Neurological Does patient have nerve stimulator: No Reproduction : No Miscellaneous Recent Exposure to Contagious Disease: No Allergies acetazolamide Allergy (Verified 07/08/24 08:17) Hands and feet tingle azithromycin (From Zithromax Z-Eben) Allergy (Verified 07/08/24 08:17) Vomiting erythromycin base Allergy (Verified 07/08/24 08:17) Upset Stomach naproxen (From Aleve) Allergy (Verified 07/08/24 08:17) Dizziness Discharge Is Pt Admitted From a Penitentiary, or a Half-Way: No After D/C, Where Do you Plan to Go: Return Home Vital Signs Vital Signs Vital Signs: 07/08/24 08:08 07/08/24 08:08 07/08/24 08:21 Temperature 97.8 F 97.8 F Temperature Source Temporal Pulse Rate 70 70 Respiratory Rate 16 16 Respiratory Pattern Normal Blood Pressure 158/102 H 158/102 H Blood Pressure Mean 120 Blood Pressure Source Monitor Blood Pressure Position Semi-Fowlers Blood Pressure Location Left Arm Pulse Ox 98 98 Oxygen Delivery Method Room Air Weight Weight: 232 lb 5.875 oz Body Mass Index (BMI) 32.3 Physical Exam Const alert and oriented x3 HEENT normocephalic Eyes PERRL Resp normal respiratory effort and normal air movement Cardio regular rate and regular rhythm GI soft to palpation, non-tender and non-distended Extremity normal to inspection Assessment & Plan Assessment/Plan (1) Encounter for screening for malignant neoplasm of colon: PLAN: I explained endoscopy in detail to the patient. I explained the risks including but not limited to stroke or heart attack with anesthesia, perforation of the GI tract, bleeding, infection. I explained that any of these could necessitate further emergency surgery. The patient understands and all questions were answered sufficiently. The patient wishes to proceed with procedure. Vince Borges MD Pager: [facility] [address] [place] [address], [address] [place] [address] Office: Surgery Risks - Colonoscopy Risks Include but are not Limited To: Risks include but are not limited to: Bleeding, perforation requiring further surgery, inability to complete colonoscopy requiring barium enema.
--- NOTE | 2024-07-08 08:45 | COLBX_PTH ---
PATIENT: CHRISTIANO NICKERSON LOC: MS3 U#:[id number] AGE/SX: 49/M ROOM: NH318 RE07/08/[address]: Dr. Vince Borges MD : 1975 BED: 1 DIS: 07/09/2024 SPEC #: [id number] RECD: 07/08/24 13:05 STATUS: MAURICE SAMPSON #: [id number] DEMETRICE: 07/08/24 08:[address]: Vince Borges DEPT: SURGICAL PATHOLOGY RECD BY: Tim Stein ENTERED: 07/08/24 14:14 SP TYPE: COLON BX OTHR DR: Dr. Greg Cleaning MD Tissues: A - Descending colon B - Rectum, NOS Procedures: Immunohistochemical Stains Surgery Specimen Level IV IHC Stain ADDITIONAL HEADER OPERATION: Colonoscopy and polypectomy PRE-OP DIAGNOSIS: Screening TISSUE SUBMITTED: A- Descending colon polyp at 70, B- Rectal polyp MICROSCOPIC DIAGNOSIS A. Descending colon, polyp @ 70, biopsy: * Tubulovillous adenoma, multiple fragments. B. Rectum, polyp, biopsy: * Tubulovillous adenoma with high grade dysplasia. * IHCs reveal overexpression of p53 with increased proliferative index by Ki67, supporting the diagnosis (blocks B2, B3). * The assessable surgical margin appears free of dysplasia. MICROSCOPIC DESCRIPTION Slides are reviewed. These tests were developed and their performance characteristics determined by [facility]. They may not have been cleared or approved by the U.S. Food and Drug Administration. The FDA has determined that such clearance or approval is not necessary. The above immunohistochemical/dualISH markers are ordered and reviewed by the Pathologist. GROSS DESCRIPTION Specimen A- received in formalin labeled Christiano Nickerson, and designated descending colon polyp at 70, are multiple graves tissue fragments aggregating to 1.3 x 1.0 x 0.2 cm. Totally submitted in one cassette.Specimen B-received in formalin labeled Christiano Nickerson, and designated rectal polyp, is a graves polypoid tissue fragment that measures 1.7 x 1.5 x 1.4 cm. The specimen is inked black, serially sectioned and totally submitted in three cassettes. Huang 07/08/2024 CPT:98067s2, 14449, 42235a7
--- NOTE | 2024-07-08 09:29 | OP.CCLET_ITS ---
07/08/2024 Greg Cleaning [address] [place] [address] Re : Colonoscopy procedure for Christiano Burns Dear Dr. Cleaning This procedure was performed on Monday, July 08, 2024. My impressions and recommendations are as follows: Impressions : - Two large polyps in the rectum and in the descending colon, removed with a hot snare. Resected and retrieved. - The examination was otherwise normal on direct and retroflexion views. Recommendations : - Discharge patient to home. - Resume previous diet. - Continue present medications. - Await pathology results. - Repeat colonoscopy in 3 years for surveillance. My findings are described in the full procedure note, which is enclosed. If I can be of further assistance, please feel free to contact me at Doctor phone number(s): , Work: . Sincerely, Vince Borges MD 07/08/2024 9:29:23 AM This report has been signed electronically.
--- NOTE | 2024-07-08 09:29 | OP.COLON_ITS ---
Patient Name: Christiano Burns Procedure Date: 07/08/2024 8:56 AM Date of : 1975 Age: 49 Procedure: Colonoscopy Indications: Screening for colorectal malignant neoplasm Providers: Vince Borges MD Referring MD: Greg Cleaning Medicines: Propofol per Anesthesia Patient Profile: This is a 49 year old male. Refer to note in patient chart for documentation of history and physical. Last Colonoscopy: none. The patient's first colonoscopy is today. Complications: No immediate complications. Estimated blood loss: Minimal. Procedure: Pre-Anesthesia Assessment: - Prior to the procedure, a History and Physical was performed, and patient medications and allergies were reviewed. The patient's tolerance of previous anesthesia was also reviewed. The risks and benefits of the procedure and the sedation options and risks were discussed with the patient. All questions were answered, and informed consent was obtained. Prior Anticoagulants: The patient has taken no anticoagulant or antiplatelet agents. After reviewing the risks and benefits, the patient was deemed in satisfactory condition to undergo the procedure. After I obtained informed consent, the scope was passed under direct vision. Throughout the procedure, the patient's blood pressure, pulse, and oxygen saturations were monitored continuously. The Colonoscope was introduced through the anus and advanced to the cecum, identified by appendiceal orifice and ileocecal valve. The colonoscopy was performed without difficulty. The patient tolerated the procedure well. The quality of the bowel preparation was good. The ileocecal valve, appendiceal orifice, and rectum were photographed. Scope In: 8:56:14 AM Scope Withdrawal Time 0 hours 20 minutes 11 seconds Scope Out: 9:27:17 AM Total Procedure Duration Time 0 hours 31 minutes 3 seconds Findings: Two pedunculated polyps were found in the rectum and descending colon. The polyps were large in size. These polyps were removed with a hot snare. Resection and retrieval were complete. The exam was otherwise without abnormality on direct and retroflexion views. Impression: - Two large polyps in the rectum and in the descending colon, removed with a hot snare. Resected and retrieved. - The examination was otherwise normal on direct and retroflexion views. Recommendation: - Discharge patient to home. - Resume previous diet. - Continue present medications. - Await pathology results. - Repeat colonoscopy in 3 years for surveillance. Procedure Code(s): --- Professional --- 32955, 33, Colonoscopy, flexible; with removal of tumor(s), polyp(s), or other lesion(s) by snare technique Diagnosis Code(s): --- Professional --- Z12.11, Encounter for screening for malignant neoplasm of colon D12.8, Benign neoplasm of rectum D12.4, Benign neoplasm of descending colon CPT copyright 2021 [employer]. All rights reserved. The codes documented in this report are preliminary and upon business development agent review may be revised to meet current compliance requirements. Vince Borges MD 07/08/2024 9:29:23 AM This report has been signed electronically. Number of Addenda: 0 Note Initiated On: 07/08/2024 8:56 AM
--- NOTE | 2024-07-08 09:40 | PCM.POST.ANE ---
Anesthesia: Postop Eval I Current Vital Signs Temperature: 97 F Pulse Rate: 84 Blood Pressure: 115/82 Respiratory Rate: 18 Pulse Ox: 94 Oxygen Delivery Method: Room Air Assessment Airway patent: Yes Spontaneous unlabored respirations: Yes Mental status: Awake nausea: Yes Vomiting: Yes Anesthesia Complication: Yes Anesthesia Complication Comment:: pt emesis during procedure, profuse coughing in PACU upon waking up Fluid Hydration Crystalloid volume administer (ml): 60 Total IV fluid infused: 60 Progress Note Anesthesia document: Postop Eval 1 completed: Yes
--- NOTE | 2024-07-08 09:56 | PCM.POSTANE2 ---
Anesthesia Postop Eval I Sum Postop Eval Completion status Anesthesia document: Postop Eval 1 completed: Yes Anesthesia Postop Eval I Summary Anesthesia Postop Eval I Summary: Anesthesia Postop Eval I: Assessment Summary Airway patent Yes 07/08/24 09:42 [email or web address] Spontaneous unlabored Yes 07/08/24 09:42 [email or web address] respirations Mental status Awake 07/08/24 09:42 [email or web address] nausea Yes 07/08/24 09:42 [email or web address] Vomiting Yes 07/08/24 09:42 [email or web address] Anesthesia Postop Eval I: Fluid Summary Crystalloid volume administer 60 07/08/24 09:42 [email or web address] (ml) Colloids volume administered ( ml) Blood Product volume administered (ml) Total IV fluid infused 60 07/08/24 09:42 [email or web address] Anesthesia Postop Eval I: Summary Notes Anesthesia Complication Yes 07/08/24 09:42 [email or web address] Anesthesia Complication pt emesis during 07/08/24 09:42 [email or web address] Comment: procedure, profuse coughing in PACU upon waking up Post-operative progress note Anesthesia: Postop Eval II Evaluation Mental status: Awake Pain Level: 0 nausea: No Vomiting: No
--- NOTE | 2024-07-08 14:04 | HP.PCM.SX_ITS ---
HPI - General HPI Narrative BREANN NICKERSON, is a 49 M who presents after colonoscopy this morning. The patient has been having extreme amounts of blood per rectum. He reports it is hard to even hold it in. [facility] Medical History Wears glasses Non-smoker Alcohol consumption of one to four drinks per day Migraines Leukocytosis Acute appendicitis ADHD HTN (hypertension) Home Medications ?Medication ?Instructions ?Recorded ?Last Taken ?Type dextroamphetamine-amphetamine 10 10 mg PO BID 03/01/24 Unknown History mg tablet (Adderall) indapamide 1.25 mg tablet 1.25 mg PO QAM 03/01/24 Unkn own History metoprolol tartrate 50 mg tablet 50 mg PO QDAY 4 07/08/24 History omega-3 fatty acids-fish oil 360 1 cap PO QDAY 4 Unknown History mg-1,200 mg capsule (Fish Oil) ramipril 10 mg capsule 10 mg PO QDAY 03/01/24 Unkno wn History Allergy/AdvReac Type Severity Reaction Status Date / Time acetazolamide Allergy Hands and Verified 07/08/24 08:17 feet tingle azithromycin (From Zithromax Allergy Vomiting Verified 07/08/24 08:17 Z-Eben) erythromycin base Allergy Upset Verified 07/08/24 08:17 Stomach naproxen (From Aleve) Allergy Dizziness Verified 07/08/24 08:17 Surgical History Hx of resection of rib Hx of appendectomy Social History household members: spouse current occupational status: employed Smoking Status: Never smoker alcohol intake: current substance use type: does not use Vital Signs Vital Signs Vital Signs: 07/08/24 08:08 07/08/24 08:08 07/08/24 08:21 Temperature 97.8 F 97.8 F Temperature Source Temporal Pulse Rate 70 70 Respiratory Rate 16 16 Respiratory Pattern Normal Blood Pressure 158/102 H 158/102 H Blood Pressure Mean 120 Blood Pressure Source Monitor Blood Pressure Position Semi-Fowlers Blood Pressure Location Left Arm Baseline BP Pulse Ox 98 98 Oxygen Delivery Method Room Air 07/08/24 09:33 07/08/24 09:42 07/08/24 09:45 Temperature 97.1 F L 97 F L 98.0 F Temperature Source Temporal Temporal Pulse Rate 81 84 78 Respiratory Rate 16 18 16 Respiratory Pattern Normal Blood Pressure 100/75 115/82 H 116/95 H Blood Pressure Mean 83 102 Blood Pressure Source Monitor Monitor Blood Pressure Position Semi-Fowlers Semi-Fowlers Blood Pressure Location Left Arm Left Arm Baseline BP 158/102 158/102 Pulse Ox 92 94 94 Oxygen Delivery Method Room Air Room Air Room Air 07/08/24 10:02 07/08/24 10:03 Temperature Temperature Source Pulse Rate Respiratory Rate Respiratory Pattern Normal Blood Pressure Blood Pressure Mean Blood Pressure Source Blood Pressure Position Blood Pressure Location Baseline BP 158/102 Pulse Ox Oxygen Delivery Method Weight Weight: 232 lb 5.875 oz Body Mass Index (BMI) 32.3 Assessment & Plan Assessment/Plan (1) Post-polypectomy bleeding: PLAN: Patient has postpolypectomy bleeding from a large polyp that was removed to the rectum. I recommend he come back in for repeat scope. Plan for flexible sigmoidoscopy to washout the area and place clips over the stalk of the polyp. Vince Borges MD Pager: [facility] [address] [place] [address], [address] [place] [address] Office:
--- NOTE | 2024-07-08 14:24 | PRE.ANES_ITS ---
ASA Classification* ASA Classification ASA Classification: 3 and E Assessment & Plan Anesthesia* Anesthesia Assessment Anesthesia Assessment: Discussed sedation and/or anesthesia options, risks, benefits, and alternatives with patient/parents/legal guardian/POA. Questions invited. The patient/parents/legal guardian/POA seems to understand and agrees to proceed with anesthesia plan. Reviewed the physical assessment, medical history, allergy history and patient home medications list prior to surgery/procedure/anesthetic and documented any changes. Performed airway and anesthesia risk assessments. Anesthesia Type Anesthesia Type: General (Patient ate food after this am Colonoscopy, light heade , dizzy, bleeding per rectum. cbc, t/s sent prior to OR endo room 2) Anesthesia Focused Assessment* Temperature: 98.0 F Pulse Rate: 78 Blood Pressure: 116/95 Respiratory Rate: 16 Pulse Ox: 94 Airway Assessment Mouth opens: >3 cm Mallampati Score: II Focused Labs Anesthesia Preop lab: CBC WBC 5.3 K/mm3 (4.4-11.0) 08/05/23 12:54 08/05/23 RBC 4.87 M/mm3 (4.6-6.2) 08/05/23 12:54 08/05/23 Hgb 14.7 g/dL (13.0-16.5) 08/05/23 12:54 08/05/23 Hct 44.5 % (40-54) 08/05/23 12:54 08/05/23 Plt Count 168 K/mm3 (150-450) 08/05/23 12:54 08/05/23 CHEMISTRY Potassium 3.8 mmol/L (3.5-5.1) 08/05/23 12:54 08/05/23 Sodium 136 mmol/L (136-145) 08/05/23 12:54 08/05/23 Magnesium 1.8 mg/dL (1.6-2.6) 11/10/17 11:52 11/10/17 BUN 7 mg/dL (7-18) 08/05/23 12:54 08/05/23 Creatinine 0.80 mg/dL (0.70-1.30) 08/05/23 12:54 08/05/23 Glucose 133 mg/dL (74-106) H 08/05/23 12:54 08/05/23 TSH 1.73 uIU/mL (0.358-3.74) 04/24/22 11:24 COAG Pre-Assessment Diagnosis/Proposed Procedure Planned Operative Procedure(s): Colonoscopy - Open Access. 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 When Was Last Pacemaker Check QUESTION #4 FULL TEXT: You/Your Family Experience fever (hyperthermia) with Anesthesia Last Oral Intake Last Oral intake: Last Oral Intake NPO since 04:45 07/08/24 08:08 Meds taken in AM with sips of Yes 07/08/24 08:08 water? Meds patient instructed to metoprolol 07/08/24 08:08 take am of surgery PONV PONV - [employer] officer: PONV - [employer] officer Female No 07/04/24 14:10 HX of Motion Sickness No 07/04/24 14:10 HX of N/V After Surgery No 07/04/24 14:10 Non-Smoker Yes 07/04/24 14:10 Duration of Surgery greater No 07/04/24 14:10 than 60 minutes Number of Risk Factors 1 07/04/24 14:10 PONV Score Low Risk 07/04/24 14:10 Height & Weight Height & Weight: Anesthesia: Height & Weight Height 5 ft 11 in 07/08/24 08:08 Weight: 105.4 kg 07/08/24 08:08 Body Mass Index (BMI) 32.3 07/08/24 08:08 Respiratory Assessment Respiratory Assessment - [employer] officer: Respiratory Tract Infection Hx - [employer] officer Hx Respiratory Tract Infection No 07/08/24 08:45 STOP Sleep Apnea STOP Sleep Apnea - [employer] officer: STOP Sleep Apnea - [employer] officer Hx Hypertension Yes 07/08/24 08:45 Hx Sleep Apnea No 07/08/24 09:45 CPAP BIPAP Do you snore loudly (louder Yes 07/08/24 08:45 than talking or can be heard Do you often feel tired/ No 07/08/24 08:45 fatigued/ sleepy during daytime? Has anyone observed you stop No 07/08/24 08:45 breathing during sleep? STOP Results Positive 07/08/24 08:45 QUESTION #5 FULL TEXT : Do you snore loudly (louder than talking or can be heard through closed doors)? 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 Specify any problems Hx of Preganancy in last 3 N/A 07/04/24 14:10 Months Nurse Filling Out Transfusion [email or web address] 07/04/24 14:10 & Questions: Date: 07/04/24 07/04/24 14:10 Time: 14:13 07/04/24 14:10 Patient unable to answer at this time (ie. confused, unrespo /Reproduction History /Reproductive History - [employer] officer: /Reproductive Hx- [employer] officer Hx Now No 07/08/24 08:45 Gestational Age (in weeks): EDC: Hx Hx Para Hx Section SAB No 07/04/24 14:10 [facility] Medical History Wears glasses Non-smoker Alcohol consumption of one to four drinks per day Migraines Leukocytosis Acute appendicitis ADHD HTN (hypertension) Home Medications ?Medication ?Instructions ?Recorded ?Last Taken ?Type dextroamphetamine-amphetamine 10 10 mg PO BID 03/01/24 Unknown History mg tablet (Adderall) indapamide 1.25 mg tablet 1.25 mg PO QAM 03/01/24/12/05 History metoprolol tartrate 50 mg tablet 50 mg PO QDAY 4 07/08/24 History omega-3 fatty acids-fish oil 360 1 cap PO QDAY 4 Unknown History mg-1,200 mg capsule (Fish Oil) ramipril 10 mg capsule 10 mg PO QDAY 03/01/2407/08 History Allergy/AdvReac Type Severity Reaction Status Date / Time acetazolamide Allergy Hands and Verified 07/08/24 08:17 feet tingle azithromycin (From Zithromax Allergy Vomiting Verified 07/08/24 08:17 Z-Eben) erythromycin base Allergy Upset Verified 07/08/24 08:17 Stomach naproxen (From Aleve) Allergy Dizziness Verified 07/08/24 08:17 Surgical History Hx of resection of rib Hx of appendectomy Social History household members: spouse current occupational status: employed Smoking Status: Never smoker alcohol intake: current substance use type: does not use Review of Systems (Anesthesia) ROS Narrative System reviewed and no additional complaints, except as documented.
[2024-07-08 14:26] LABS: Absolute Lymphocyte Count 0.51 X10^3/uL (0.83-4.51); Absolute Neutrophil Count 16.6 X10^3/uL (2.0-7.7); Basophil# 0.03 X10^3/uL; Basophil% 0.2 % (0-1); Hematocrit 40.1 % (40-54); Lymphocyte # 0.51 X10^3/ul (0.83-4.51); Lymphocyte % 2.8 % (19-41); Mean Corp Hgb Conc 34.9 g/dL (32-36); Mean Corpuscular Hgb 31.7 pg (27.0-32.0); Mean Corpuscular Volume 90.9 fL (80-94); Mean Platelet Vol. 10.1 fl (6.2-12.0); Monocyte# 0.89 X10^3/uL; Monocyte% 4.9 % (0-10); NRBC Flagged by Analyzer 0 % (0-5); Neutrophil # 16.57 X10^3/uL (2.7-7.7); Neutrophil % 91.6 % (47-70); POSITIVE DIFFERENTIAL YES; Platelet Count 196 K/mm3 (150-450); RBC Distribution Width CV 12.5 % (11.6-14.6); RBC Distribution Width SD 41.5 fl (35.1-43.9); Red Blood Count 4.41 M/mm3 (4.6-6.2); White Blood Count 18.1 K/mm3 (4.4-11.0)
[2024-07-08] MEDS: 0.9% Normal Saline (1000mL) 1,000 ML 999 ML IV ×2 (14:30→16:17)
[2024-07-08 14:42] LABS: Bedside Glucose 221 mg/dL (74-106)
--- NOTE | 2024-07-08 14:54 | OP.CCLET_ITS ---
07/08/2024 Greg Cleaning [address] [place] [address] Re : Colonoscopy procedure for Christiano Burns Dear Dr. Cleaning This procedure was performed on Monday, July 08, 2024. My impressions and recommendations are as follows: Impressions : - Bleeding in the rectum secondary to previous polypectomy. Clips were placed. 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 - No specimens collected. Recommendations : - Observe patient in same day observation unit for ongoing care. - Resume previous diet. - Continue present medications. - Repeat colonoscopy to evaluate the response to therapy. My findings are described in the full procedure note, which is enclosed. If I can be of further assistance, please feel free to contact me at Doctor phone number(s): , Work: . Sincerely, Vince Borges MD 07/08/2024 2:54:12 PM This report has been signed electronically.
--- NOTE | 2024-07-08 14:54 | OP.COLON_ITS ---
Patient Name: Christiano Burns Procedure Date: 07/08/2024 1:39 PM Date of : 1975 Age: 49 Procedure: Colonoscopy Indications: Treatment of bleeding from polypectomy site Providers: Vince Borges MD Referring MD: Greg Cleaning Medicines: Propofol per Anesthesia Patient Profile: This is a 49 year old male. Refer to note in patient chart for documentation of history and physical. Last Colonoscopy: none. The patient's first colonoscopy is today. Complications: No immediate complications. Procedure: Pre-Anesthesia Assessment: - Prior to the procedure, a History and Physical was performed, and patient medications and allergies were reviewed. The patient's tolerance of previous anesthesia was also reviewed. The risks and benefits of the procedure and the sedation options and risks were discussed with the patient. All questions were answered, and informed consent was obtained. Prior Anticoagulants: The patient has taken no anticoagulant or antiplatelet agents. After reviewing the risks and benefits, the patient was deemed in satisfactory condition to undergo the procedure. After I obtained informed consent, the scope was passed under direct vision. Throughout the procedure, the patient's blood pressure, pulse, and oxygen saturations were monitored continuously. The colonoscope was introduced through the anus and advanced to the rectum to examine a polypectomy site. This was the intended extent. The colonoscopy was performed without difficulty. The patient tolerated the procedure well. The quality of the bowel preparation was good. Anatomical landmarks were photographed. Scope In: 2:40:29 PM Scope Out: 2:46:43 PM Total Procedure Duration Time 0 hours 6 minutes 14 seconds Findings: Active bleeding was seen in the rectum, secondary to previous polypectomy procedure. To prevent bleeding after the polypectomy, three hemostatic clips were successfully placed. Clip billet checker: [place]. There was no bleeding at the end of the procedure. Impression: - Bleeding in the rectum secondary to previous polypectomy. Clips were placed. Clip billet checker: Vesper Vecast. - No specimens collected. Recommendation: - Observe patient in same day observation unit for ongoing care. - Resume previous diet. - Continue present medications. - Repeat colonoscopy to evaluate the response to therapy. Procedure Code(s): --- Professional --- 78915, 53, Colonoscopy, flexible; diagnostic, including collection of specimen(s) by brushing or washing, when performed (separate procedure) Diagnosis Code(s): --- Professional --- K91.840, Postprocedural hemorrhage of a digestive system organ or structure following a digestive system procedure CPT copyright 2021 [employer] [place] [employer] [employer]. All rights reserved. The codes documented in this report are preliminary and upon tile edger review may be revised to meet current compliance requirements. Vince Borges MD 07/08/2024 2:54:12 PM This report has been signed electronically. Number of Addenda: 0 Note Initiated On: 07/08/2024 1:39 PM
--- NOTE | 2024-07-08 14:58 | NURSING ---
upon arrival to preop room, patient was laying in bed and became faint, anesthesia and this RN at bedside, patient had syncopal episode while in bed and became pale and diaphoretic, he was put in trendelenburg and turned on left side. patient came to and was coherent and talking. vitals taken, IV fluid bolus started and patient stabilized prior to being moved to OR for procedure
--- NOTE | 2024-07-08 15:01 | PCM.POST.ANE ---
Anesthesia: Postop Eval I Current Vital Signs Temperature: 98.6 F Pulse Rate: 99 Blood Pressure: 143/78 Respiratory Rate: 20 Pulse Ox: 95 Oxygen Delivery Method: Room Air Assessment Airway patent: Yes Spontaneous unlabored respirations: Yes Mental status: Awake and Calm nausea: No Vomiting: No Anesthesia Complication: No Fluid Hydration Crystalloid volume administer (ml): 1,600 Total IV fluid infused: 1,600 Progress Note Anesthesia document: Postop Eval 1 completed: Yes
--- NOTE | 2024-07-08 15:38 | POSTOPAN2_ITS ---
Anesthesia Postop Eval I Sum Postop Eval Completion status Anesthesia document: Postop Eval 1 completed: Yes Anesthesia Postop Eval I Summary Anesthesia Postop Eval I Summary: Anesthesia Postop Eval I: Assessment Summary Airway patent Yes 07/08/24 15:02 [email or web address] [email or web address] Spontaneous unlabored Yes 07/08/24 15:02 [email or web address] [email or web address] respirations Mental status Awake,Calm 07/08/24 15:02 [email or web address] nausea No 07/08/24 15:02 [email or web address] Vomiting No 07/08/24 15:02 [email or web address] [email or web address] Anesthesia Postop Eval I: Fluid Summary Crystalloid volume administer 1,600 07/08/24 15:02 [email or web address] [email or web address] (ml) Colloids volume administered ( ml) Blood Product volume administered (ml) Total IV fluid infused 1,600 07/08/24 15:02 [email or web address] [email or web address] Anesthesia Postop Eval I: Summary Notes Anesthesia Complication No 07/08/24 15:02 [email or web address] [email or web address] Anesthesia Complication pt emesis during 07/08/24 09:42 [email or web address] Comment: procedure, profuse coughing in PACU upon waking up Post-operative progress note Anesthesia: Postop Eval II Evaluation Mental status: Awake Pain Level: 0 nausea: No Vomiting: No
--- NOTE | 2024-07-08 15:38 | PCM.POSTANE2 ---
Anesthesia Postop Eval I Sum Postop Eval Completion status Anesthesia document: Postop Eval 1 completed: Yes Anesthesia Postop Eval I Summary Anesthesia Postop Eval I Summary: Anesthesia Postop Eval I: Assessment Summary Airway patent Yes 07/08/24 15:02 [email or web address] [email or web address] Spontaneous unlabored Yes 07/08/24 15:02 [email or web address] [email or web address] respirations Mental status Awake,Calm 07/08/24 15:02 [email or web address] [email or web address] nausea No 07/08/24 15:02 [email or web address] [email or web address] Vomiting No 07/08/24 15:02 [email or web address] [email or web address] Anesthesia Postop Eval I: Fluid Summary Crystalloid volume administer 1,600 07/08/24 15:02 [email or web address] (ml) Colloids volume administered ( ml) Blood Product volume administered (ml) Total IV fluid infused 1,600 07/08/24 15:02 [email or web address] Anesthesia Postop Eval I: Summary Notes Anesthesia Complication No 07/08/24 15:02 [email or web address] [email or web address] Anesthesia Complication pt emesis during 07/08/24 09:42 [email or web address] Comment: procedure, profuse coughing in PACU upon waking up Post-operative progress note Anesthesia: Postop Eval II Evaluation Mental status: Awake Pain Level: 0 nausea: No Vomiting: No
--- NOTE | 2024-07-08 15:38 | ANES.CONFIRM ---
Anesthesia: Confirm Documents Multiple Procedures on Account (2) Confirmed Documents: Yes
--- NOTE | 2024-07-08 15:39 | ANES.CONFIRM ---
Anesthesia: Confirm Documents Multiple Procedures on Account (2) Confirmed Documents: Yes
[2024-07-08] MEDS: Epinephrine (1 mg/ml) 1 MG/ML VIAL (16:18)
[2024-07-08] MEDS: Sugammadex Sodium 200 MG/2 ML VIAL IV (16:19)
[2024-07-08] MEDS: 0.9% Normal Saline (Pres. free 10 ML Vial (16:19)
[2024-07-08] MEDS: 0.9% Normal Saline (1000mL) 1,000 ML 100 ML IV (17:19)
--- NOTE | 2024-07-08 23:00 | NURSING ---
pt called staff into the room after using the toilet . there was maroon colored water and a clot approximately a 1/4 cup size and dark red in appearance. rn made aware and spoke with pt regardingthe clot and blood in the toilet
[2024-07-09 00:06] VITALS: BP 142/87; PULSE 80; RESP 18; TEMP 36.8; O2SAT 98
[2024-07-09] MEDS: 0.9% Normal Saline (1000mL) 1,000 ML 100 ML IV (02:49)
[2024-07-09 03:51] VITALS: BP 143/85; PULSE 84; RESP 16; TEMP 36.8; O2SAT 94
[2024-07-09 07:21] LABS: Absolute Lymphocyte Count 1.15 X10^3/uL (0.83-4.51); Absolute Neutrophil Count 9.6 X10^3/uL (2.0-7.7); Basophil# 0.02 X10^3/uL; Basophil% 0.2 % (0-1); Hematocrit 31.4 % (40-54); Hemoglobin 10.9 g/dL (13.0-16.5); Lymphocyte # 1.15 X10^3/ul (0.83-4.51); Lymphocyte % 9.2 % (19-41); Mean Corp Hgb Conc 34.7 g/dL (32-36); Mean Corpuscular Hgb 31.8 pg (27.0-32.0); Mean Corpuscular Volume 91.5 fL (80-94); Mean Platelet Vol. 10.6 fl (6.2-12.0); Monocyte# 1.66 X10^3/uL; Monocyte% 13.3 % (0-10); NRBC Flagged by Analyzer 0 % (0-5); Neutrophil # 9.59 X10^3/uL (2.7-7.7); Neutrophil % 76.6 % (47-70); POSITIVE DIFFERENTIAL YES; Platelet Count 125 K/mm3 (150-450); RBC Distribution Width CV 12.7 % (11.6-14.6); RBC Distribution Width SD 42.2 fl (35.1-43.9); Red Blood Count 3.43 M/mm3 (4.6-6.2); White Blood Count 12.5 K/mm3 (4.4-11.0)
[2024-07-09 07:30] LABS: Differential Indicated SCAN CRITERIA MET
--- NOTE | 2024-07-09 08:43 | PCM.PN.SRG ---
Subjective Subjective Patient had 1 bloody bowel movement this morning but he reports it is much less bloody than it was yesterday he denies any abdominal pain. Objective Data Objective Data Vital Signs: Vital Signs Temp Pulse Resp BP Pulse Ox O2 Del Method 98.2 F 84 16 143/85 H 94 Room Air 07/09/24 03:51 07/09/24 03:51 07/09/24 03:51 07/09/24 03:51 07/09/24 03:51 07/09/24 03:51 Oxygen Delivery Method Room Air Weight: 232 lb 5.875 oz Body Mass Index (BMI) 32.5 Intake & Output: Intake and Output for Last 24 Hours 07/07/24 07/08/24 07/09/24 23:59 23:59 23:59 Intake Total 3000 / 3000 950 / 950 Balance 3000 / 3000 950 / 950 Lab / Micro Data 07/09/24 06:21 Labs: Laboratory Results - last 24 hr 07/08/24 14:02: POC Glucose 221 H 07/08/24 14:20: Blood Type A POSITIVE, Antibody Screen NEGATIVE, Crossmatch See Detail 07/08/24 : WBC 18.1 H, RBC 4.41 L, Hgb 14.0, Hct 40.1, MCV 90.9, MCH 31.7, MCHC 34.9, RDW Std Deviation 41.5, RDW Coeff of Herlinda 12.5, Plt Count 196, MPV 10.1, Immature Gran % (Auto) 0.500, Neut % (Auto) 91.6 H, Lymph % (Auto) 2.8 L, Woodruff % (Auto) 4.9, Eos % (Auto) 0.0, Baso % (Auto) 0.2, Absolute Neuts (auto) 16.6 H, Absolute Lymphs (auto) 0.51 L, Nucleated RBC % 0 07/09/24 06:21: WBC 12.5 H, RBC 3.43 L, Hgb 10.9 L, Hct 31.4 L, MCV 91.5, MCH 31.8, MCHC 34.7, RDW Std Deviation 42.2, RDW Coeff of Herlinda 12.7, Plt Count 125 L, MPV 10.6, Immature Gran % (Auto) 0.700, Neut % (Auto) 76.6 H, Lymph % (Auto) 9.2 L, Woodruff % (Auto) 13.3 H, Eos % (Auto) 0.0, Baso % (Auto) 0.2, Absolute Neuts (auto) 9.6 H, Absolute Lymphs (auto) 1.15, Nucleated RBC % 0 Assessment & Plan Assessment/Plan (1) Post-polypectomy bleeding: PLAN: Patient had post polypectomy bleeding was taken for repeat colonoscopy yesterday afternoon and clipping of the stalk of the polyp. At the end of the procedure there was no bleeding. There was good hemostasis from the clips. The area was irrigated. He is likely expelling old blood. He should call me if he continues to have bloody bowel movements and I gave him my number. He will follow-up with me in 1 week. Hemoglobin is 10.9 this morning.
--- NOTE | 2024-07-09 08:46 | DCINST_ITS ---
Discharge Instructions Procedure General Surgery Diet Discharge Diet: Light diet - advance as tolerated Activity Discharge Activity: May Drive and May Shower Lifting Restrictions: none Dressing / Incision Call your doctor if your incision/area has: - (Call for ongoing bloody bowel movements) Follow Up Care Please Follow Up With: Vince Borges MD When: Please call to schedule 1 week follow up appointment. [phone] Test Results: Test results from this visit will be discussed in further detail at your follow- up appointment, if applicable. Discharge Plan Admission Admit Date/Time: 07/08/24 14:54 Attending Provider: Vince Borges Primary Care Provider: Greg Cleaning Discharge Orders/Prescriptions Prescriptions: Continued dextroamphetamine-amphetamine [Adderall] 10 mg tablet 10 mg PO BID Rx Instructions: administer doses at least 4-6 hours apart metoprolol tartrate 50 mg tablet 50 mg PO QDAY indapamide 1.25 mg tablet 1.25 mg PO QAM ramipril 10 mg capsule 10 mg PO QDAY omega-3 fatty acids-fish oil [Fish Oil] 360-1,200 mg capsule 1 cap PO QDAY Referrals / Follow Up: Greg Cleaning MD [Primary Care Provider] - Disposition Disposition (needs filled in before D/C Order can be placed): Home, Self Care
[2024-07-09 08:57] LABS: Pathologist Review May foll
[2024-07-09 09:09] VITALS: BP 127/80; PULSE 70; RESP 20; TEMP 37.4; O2SAT 100
[2024-07-09 09:12] VITALS: PULSE 70
[2024-07-09 11:15] VITALS: TEMP 36.8
== END 2024-07-09 12:35 | disposition home or self-care (01) ==
LOC: EN 14:57 → MS3 14:57
PROVIDERS: Anesthesiology; Admitting Provider Surgery; PCP Family Medicine; Referring Provider Family Medicine; Visit Provider Surgery
PROC: 0DJD8ZZ Inspection of Lower Intestinal Tract, Via Natural or Artificial Opening Endoscopic (ICD-10-PCS; CPT 45378; principal; 2024-07-08 08:40)
DX: K91.840 Postprocedural hemorrhage of a digestive system organ or structure following a digestive system procedure (principal); D12.8 Benign neoplasm of rectum; Z86.0100 Personal history of colon polyps, unspecified; D12.4 Benign neoplasm of descending colon; F90.9 Attention-deficit hyperactivity disorder, unspecified type; I10 Essential (primary) hypertension
CPT/HCPCS: 45385; 45382; 36415; 82962; 85025; 86850; 86900; 86901; 86920; 88305; 88341; 88342; 96360; 96361; 99221; A4216; G0378; J2405